=== PATIENT | male | born 1975 | race Caucasian/White ===

== ENCOUNTER 2020-05-09 20:42 | Emergency (ER) | payer OTHER, SELFPAY ==
[2020-05-09 20:49] VITALS: BP 156/79; PULSE 92; RESP 16; TEMP 37.2; O2SAT 98
--- NOTE | 2020-05-09 21:05 | ED.GENADUL_ITS ---
Discharge Plan Disposition Patient Disposition: HOME Condition: Stable Discharge Details Chief Complaint: Laceration Clinical Impression: Complex laceration of right ear Primary Care Provider: Suzie Carvajal ED Provider: Shen Montalvo Home Meds and New Rx's Prescriptions: New ciprofloxacin HCl 500 mg tablet 500 mg PO BID Qty: 6 RF: 0 Continued carbamazepine 400 mg tablet extended release 12 hr 400 mg PO BID Qty: 180 RF: 3 prochlorperazine maleate 5 mg tablet See Rx Instructions PO Q8H PRN Qty: 90 RF: 0 calcium carbonate-vitamin D3 1 EACH tablet 1 ea PO DAILY RF: 0 pantoprazole 40 MG tablet,delayed release (DR/EC) 40 mg PO DAILY Qty: 30 RF: 0 Discharge Instructions Instructions: Laceration (ED) Additional Instructions: Please follow-up with Dr. Beckman. Call for an appointment to be seen on . Please take acetaminophen (tylenol) - 650mg every 6 hours by mouth as needed for pain. Apply bacitracin antibiotic ointment twice a day. Please take antibiotic, ciprofloxacin as prescribed. Return to the ER for any worsening or new concerning symptoms. Referrals: Nilton Beckman MD [ [facility] STAFF PHYSICIAN] - Medical Decision Making 44-year-old male here with complex laceration to right ear extending fully through cartilage. Tetanus is up-to-date 2018. I consulted ear nose and throat, Dr. Beckman, who was available to evaluate and treat the patient here in the emergency department. Dr. Beckman provided anesthetic, cleansed wound and repaired primarily?please see his documentation regarding treatment. Usual and customary discharge instructions were provided with instruction to follow-up with Dr. Beckman. Dr. Beckman did request that we give a dose of ciprofloxacin 750 mg by mouth here in the emerge department and continue ciprofloxacin 500 mg twice daily for 3 days. He will be seen the patient in clinic on for follow-up. HPI General Mode of arrival: ambulatory . Date/Time Provider Initiated Documentation: 05/09/20 20:58 . Limitations to Documentation: no limitations . Information obtained by: patient . HPI Narrative: 44-year-old male here with right ear laceration. Patient notes he was at work just prior to arrival and caught his ear on a hook and sustained laceration. This occurred just prior to arrival. Wound has been bleeding. Bleeding improved with dressing. Laceration is severe. Related Data Home Medications Medication Instructions Recorded Confirmed pantoprazole 40 mg PO DAILY #30 tabcr 07/22/17 07/04/19 calcium carbonate-vitamin D3 1 ea PO DAILY 08/05/17 05/09/20 carbamazepine 400 mg 400 mg PO BID #180 tab 07/04/19 05/09/20 tablet,extended release,12 hr prochlorperazine maleate 5 mg See Rx Instructions PO Q8H PRN #90 07/04/19 07/04/19 tablet tab-cap ciprofloxacin HCl 500 mg PO BID #6 tab 05/09/20 Previous Rx's Medication Instructions Recorded pantoprazole 40 mg PO DAILY #30 tabcr 07/22/17 carbamazepine 400 mg 400 mg PO BID #180 tab 07/04/19 tablet,extended release,12 hr prochlorperazine maleate 5 mg See Rx Instructions PO Q8H PRN #90 07/04/19 tablet tab-cap ciprofloxacin HCl 500 mg PO BID #6 tab 05/09/20 Allergies Allergy/AdvReac Type Severity Reaction Status Date / Time venom-honey bee Allergy Severe Verified 05/09/20 20:53 General Stated Complaint: Laceration BALTA: 4 Review of Systems ENT Ears, Nose, Mouth, and Throat: Reports otalgia Integumentary/Breasts Skin/Breast: Reports as per [facility] Medical History Bland's esophagus (Acute) Focal epilepsy (Acute 06/25/15) Hiatal hernia (Chronic) Iron deficiency anemia due to chronic blood loss (Acute) Migraine without aura and without status migrainosus, not intractable (Acute 06/05/18) Surgical History Colonoscopy - MAC (08/30/17) EGD - MAC (08/30/17) S/P ORIF (open reduction internal fixation) fracture (Acute) left tib-fib; and left radius Family History Father Depression Mother Headache Social History Smoking/Tobacco Use Status: Former Tobacco Use Alcohol Intake: never Drug use: Never Household members: family current occupation: Road construction What is your relationship status?: Panel score (0-1 are the most socially isolated patients): 0 Do you feel safe at home: Yes Do you feel safe in your relationship?: Yes Exam Const General: cooperative and no acute distress HENMT Ears: other (Laceration, see skin) Mouth: moist mucous membranes Other: 5 cm, jagged laceration of superior right pinna extending through cartilage Skin Trauma: laceration (Right pinna) Neuro General: patient alert, patient awake and patient oriented x3 Course Vital Signs Vital signs: Vital Signs Temperature 37.2 C 05/09/20 20:49 Pulse 92 H 05/09/20 20:49 Respiratory Rate 16 05/09/20 20:49 Blood Pressure 156/79 H 05/09/20 20:49 Pulse Oximetry 98 05/09/20 20:49 Temperature 37.2 C 05/09/20 20:49 Pulse 92 H 05/09/20 20:49 Respiratory Rate 16 05/09/20 20:49 Respiratory Effort Non-Labored 05/09/20 20:51 Blood Pressure 156/79 H 05/09/20 20:49 Blood Pressure Position Sitting 05/09/20 20:49 Pulse Oximetry 98 05/09/20 20:49 Oxygen Delivery Method Room Air 05/09/20 20:49 Oxygen Flow Rate 0 05/09/20 20:49 Pain Level 3 05/09/20 20:51
[2020-05-09] MEDS: Hydrogen Peroxide 3% 480 ML BTL (21:53)
--- NOTE | 2020-05-09 22:04 | W.PROCNOTE ---
Date of service: 05/09/20 Procedure Note Date of procedure: 05/09/20 Procedure: Repair of right-sided comminuted laceration and exposed cartilage, ear Surgeon/Proceduralist/Physician: Nilton Beckman Procedure Indications: Right ear complex laceration Procedure Description: The patient was at work today when a hook struck him in the right ear, causing a complex laceration to his right ear. Total laceration length measures approximately 7 cm. The cartilage was avulsed as well. As a result I was asked to see the patient. He is up-to-date on his tetanus. He was prepped and draped in appropriate fashion. Verbal consent was obtained to repair the laceration. Risks including for scarring and infection were discussed at length. The patient was then focally anesthetized with 1% lidocaine with 1/100,000 epinephrine taking care not to compromise the blood supply to any given portion of the laceration. The cartilage was repositioned into its appropriate pocket, and then the complex laceration closed with a single layer of five-point 0 interrupted sutures. A small piece of avulsed skin on a small pedicle along the outer helix was excised, as it was deemed nonviable, and could not be positioned back into place. Once the laceration was completely closed, the cartilage was felt to be stable and the repair was felt to be stable. There was no evidence of hematoma formation. Sutures in the middle portion of the wound were left loose enough that if any bleeding continued the blood could escape. The patient was advised not to put any pressure on the wound, to watch for hematoma formation or any signs of infection. He will be given 750 mg of Cipro p.o. here and then given a prescription for Cipro at 500 mg twice daily to go home with. He will apply bacitracin twice daily for 3 days to the wound. He will follow-up with me on for suture removal. He will keep the wound dry for 48 hours. He will use ibuprofen or Tylenol for discomfort. He had no further questions. He is comfortable with the plan.
[2020-05-09 22:10] VITALS: BP 131/70; PULSE 80; RESP 16; TEMP 37.2; O2SAT 98
--- NOTE | 2020-05-12 09:06 | NUR.NOTE ---
Referral faxed to ENT Dr Beckman aware of patient.Nursing Note:
== END 2020-05-09 21:35 | disposition home or self-care (01) ==
PROVIDERS: Emergency Provider Student in an Organized Health Care Education/Training Program; PCP Nurse Practitioner Family
DX: S01.311A Laceration without foreign body of right ear, initial encounter (principal); W26.8XXA Contact with other sharp object(s), not elsewhere classified, initial encounter; Y99.0 Civilian activity done for income or pay
CPT/HCPCS: 12053; 99283

== ENCOUNTER 2020-05-20 20:53 | Outpatient (REF) | payer OTHER, SELFPAY ==
[2020-05-20 16:04] LABS: HCT 46.5 % (40.0-50.0); HGB 15.1 g/dL (13.5-17.5); Mean Corp. HGB Concentration 32.5 g/dL (32.0-36.0); Mean Corpuscular Hemoglobin 29.3 pg (27.0-33.0); Mean Corpuscular Volume 90.3 fL (80-95); Mean Platelet Volume 11.6 fL (8.0-11.0); Platelet Count 247 x1000/uL (130-400); RBC 5.15 m/cumm (4.50-6.00); RBC Distribution Width 13.7 % (11.8-14.1); White Blood Cell Count 4.68 k/cumm (4.4-10.8)
[2020-05-20 16:18] LABS: Iron 99 ug/dL (65-175); Total Iron Binding Capacity 391 ug/dL (250-450); Transferrin Sat 25 % (20-55)
[2020-05-20 16:30] LABS: Anion Gap 10.2 mmol/L (3-11); BUN 21 mg/dL (7-18); CO2 27.8 mmol/L (21.0-32.0); CREATININE 1.12 mg/dL (0.70-1.30); Calcium 9.5 mg/dL (8.5-10.1); Calculated LDL 100 mg/dL (<100); Chloride 105 mmol/L (98-107); Cholesterol 172 mg/dL (<200); Glucose 95 mg/dL (74-106); HDL Cholesterol 58 mg/dL (40-60); Potassium 4.3 mmol/L (3.5-5.1); Sodium 143 mmol/L (136-145); TSH (W/Ref FT4) 6.95 uIU/mL (0.36-3.74); Triglyceride 73 mg/dL (<150)
[2020-05-20 17:14] LABS: FREE T4 0.84 ng/dL (0.76-1.46)
== END 2020-05-20 21:13 ==
LOC: NCHCN 20:53
PROVIDERS: PCP Nurse Practitioner Family; Visit Provider Nurse Practitioner Family
DX: E03.9 Hypothyroidism, unspecified (principal); Z00.00 Encounter for general adult medical examination without abnormal findings; D50.9 Iron deficiency anemia, unspecified; Z13.220 Encounter for screening for lipoid disorders
CPT/HCPCS: 80048; 80061; 85027; 83540; 83550; 84439; 84443

== ENCOUNTER 2022-02-09 20:01 | Outpatient (REF) | payer BC, SELFPAY ==
[2022-02-09 19:46] LABS: MCHC 22.8 % (32.0-36.0); MCV 61.7 fL (80-95); MPV 10.5 fL (8.0-11.0); Platelet Count 330 10^3/uL (130-400); RBC 2.35 10^6/uL (4.36-5.78); RDW 22.5 % (11.8-14.1); RDW-SD 47.9 fL; WBC 3.21 10^3/uL (4.4-10.8)
[2022-02-09 20:04] LABS: HCT 14.5 % (40.0-50.0); HGB 3.3 g/dL (13.5-17.5)
[2022-02-09 20:08] LABS: Iron 10 ug/dL (65-175); Total Iron Binding Capacity 395 ug/dL (250-450); Transferrin Sat 3 % (20-55)
[2022-02-09 20:28] LABS: ALT 35 U/L (16-63); AST 31 U/L (15-37); Albumin 3.4 g/dL (3.4-5.0); Alkaline Phosphatase 74 U/L (46-116); Anion Gap 10.5 mmol/L (3-11); BUN 21 mg/dL (7-18); Bilirubin, Total 0.3 mg/dL (0.2-1.0); CO2 23.5 mmol/L (21.0-32.0); Chloride 104 mmol/L (98-107); Ferritin 2 ng/mL (26-388); Glucose 90 mg/dL (74-106); Potassium 4.2 mmol/L (3.5-5.1); Sodium 138 mmol/L (136-145); TROPONIN-I 8.6 ug/mL (4.0-12.0); TSH (W/Ref FT4) 4.58 uIU/mL (0.36-3.74); Total Protein 6.4 g/dL (6.4-8.2)
== END 2022-02-09 20:02 | disposition home or self-care (01) ==
LOC: NCHCN 20:01
PROVIDERS: PCP Nurse Practitioner Family; Visit Provider Nurse Practitioner Family
DX: D50.9 Iron deficiency anemia, unspecified (principal); R56.9 Unspecified convulsions; R17 Unspecified jaundice; Z51.81 Encounter for therapeutic drug level monitoring; Z79.899 Other long term (current) drug therapy; E03.9 Hypothyroidism, unspecified
CPT/HCPCS: 80053; 85027; 80156; 82728; 83540; 83550; 84439; 84443

== ENCOUNTER 2022-02-09 20:46 | Inpatient (IN) | payer BC, SELFPAY ==
[2022-02-09] VITALS (9 sets, daily range): BP systolic 109–160; BP diastolic 61–83; PULSE 77–98; RESP 18–21; TEMP 36.5–37.7; O2SAT 100
--- NOTE | 2022-02-09 21:02 | W.ED.GENAD ---
Discharge Plan Disposition Patient Disposition: [facility] INPATIENT Condition: Improving Discharge Details Clinical Impression: Iron deficiency anemia Admit Date/Time: 02/09/22 21:55 Admit Provider: Mauro Mccall Attending Provider: Mauro Mccall Primary Care Provider: Suzie Carvajal ED Provider: Gm Carrasco Discharge Data Discharge Date/Time-TO BE ENTERED AT DEPARTURE: 02/09/22 22:53 Medical Decision Making Patient presenting to the emergency department for chief complaint of abnormal lab value. Patient reported that he saw his primary care provider today that ordered labs due to him being pale and having mild malaise. He does also report some shortness of breath with activity but denies any dark or tarry stools, vomiting blood, chest pain, abnormal bruising or bleeding. Physical exam shows a pale appearing patient that is thin but otherwise normal cardiac exam, normal respiratory exam, no other remarkable findings. Labs were reviewed and show blood that was drawn at 5 PM this evening. Given the reported hemoglobin of 3.3 will not further draw labs except for type and screen and patient consented for transfusion. Reviewed previous hospital records that show he was admitted for this in the past with cause being found as iron deficient anemia. Given that patient denies any rectal bleeding or dark tarry stools will defer on Hemoccult testing at this time. Spoke with hospitalist whom agreed to have patient admitted for further monitoring during transfusions, laboratory work-up, and stabilization as needed. Patient is in agreement with this plan of care. Lab Data Lab results reviewed: Yes I reviewed the patient's lab results. Labs: ORDERED: CBC Test Result Flag Reference Verified WBC 3.21 L 4.4-10.8 10^3/uL 02/09/22-2003 RBC 2.35 L 4.36-5.78 10^6/uL 02/09/22-2003 HGB 3.3 *L 13.5-17.5 g/dL 02/09/22-2003 Critical value reported to and readback from LYLE BARBOSA at 200302/09/22 by [facility] HCT 14.5 *L 40.0-50.0 % 02/09/22-2003 Critical value reported to and readback from LYLE BARBOSA at 200302/09/22 by [facility] MCV 61.7 L 80-95 fL 02/09/22-2003 MCH 14.0 L 27.0-33.0 pg 02/09/22 MCHC 22.8 L 32.0-36.0 % 02/09/22 RDW 22.5 H 11.8-14.1 % 02/09/22 Platelet Count 330 130-400 10^3/uL 02/09/22 MPV 10.5 8.0-11.0 fL 02/09/22 ENTERED: 02/09/[address]: FAX #: ORDERED: Iron/IBCT Test Result Flag Reference Verified Iron 10 L 65-175 ug/dL 02/09/22 Total Iron Binding Capacity 395 250-450 ug/dL 02/09/22 Transferrin Saturation 3 L 20-55 % 02/09/22 ENTERED: 02/09/[address]: FAX #: ORDERED: CMP, Carbamazepine, Ferritin, TSHR, Free T4 Test Result Flag Reference Verified Calcium 8.0 L 8.5-10.1 mg/dL 02/09/22 Glucose 90 74-106 mg/dL 02/09/22 BUN 21 H 7-18 mg/dL 02/09/22 Creatinine 1.0 0.70-1.30 mg/dL 02/09/22 Estimated GFR >= 60.00 mL/min/1.73m2 02/09/22 Reference Range: >= 60.00 mL/min/1.73m2 If patient is , multiply results by 1.212 Total Protein 6.4 6.4-8.2 g/dL 02/09/22 Albumin 3.4 3.4-5.0 g/dL 02/09/22 Bilirubin, Total 0.3 0.2-1.0 mg/dL 02/09/22 Alk Phos 74 46-116 U/L 02/09/22 Sodium 138 136-145 mmol/L 02/09/22 Potassium 4.2 3.5-5.1 mmol/L 02/09/22 Chloride 104 98-107 mmol/L 02/09/22 CO2 23.5 21.0-32.0 mmol/L 02/09/22 Anion Gap 10.5 3-11 mmol/L 02/09/22 AST 31 15-37 U/L 02/09/22 ALT 35 16-63 U/L 02/09/22 Carbamazepine 8.6 4.0-12.0 ug/mL 02/09/22 Ferritin 2 L 26-388 ng/mL 02/09/22 TSH (W/Ref FT4) 4.58 H 0.36-3.74 uIU/mL 02/09/22 NOTE: Supra-physiologic doses of Biotin(B7)may cause false negative results. Free T4 PENDING HPI General Mode of arrival: ambulatory. Date/Time Provider Initiated Documentation: 02/09/22 20:46. Limitations to Documentation: no limitations. History of Present Illness 46 year old M presents to the emergency department with the chief complaint of Low hemoglobin, described as similar to prior episodes, Quality is described as other (Denies pain or discomfort), Patient started experiencing this unknown and it has been constant. improves with No relieving factors improve symptom(s), Other factors that worsen symptoms (Activity worsen shortness of breath) . Patient notes no other symptoms.. Patient did receive the following treatments prior to arrival, none Related Data Home Medications Medication Instructions Recorded Confirmed calcium carbonate 600 mg-vitamin 1 ea PO BID 08/05/17 02/10/22 D3 5 mcg (200 unit) tablet carbamazepine 400 mg 400 mg PO BID #180 tab 06/29/21 02/09/22 tablet,extended release,12 hr prochlorperazine maleate 5 mg See Rx Instructions PO Q8H PRN #90 06/29/21 02/09/22 tablet tab-cap levothyroxine 25 mcg tablet 25 mcg PO DAILY 02/10/22 02/10/22 bisacodyl 5 mg tablet,delayed 5 mg PO ONCE #4 tab 02/11/22 release (Dulcolax (bisacodyl)) pantoprazole 40 mg tablet,delayed 40 mg PO BID@0730,2000 #60 tab 02/11/22 release polyethylene glycol 3350 17 238 g PO ONCE #238 g 02/11/22 gram/dose oral powder sucralfate 1 gram tablet 1 g PO AC & HS #120 tab 02/11/22 Previous Rx's Medication Instructions Recorded carbamazepine 400 mg 400 mg PO BID #180 tab 06/29/21 tablet,extended release,12 hr prochlorperazine maleate 5 mg See Rx Instructions PO Q8H PRN #90 06/29/21 tablet tab-cap bisacodyl 5 mg tablet,delayed 5 mg PO ONCE #4 tab 02/11/22 release (Dulcolax (bisacodyl)) pantoprazole 40 mg tablet,delayed 40 mg PO BID@07,1999 #60 tab 02/11/22 release polyethylene glycol 3350 17 238 g PO ONCE #238 g 02/11/22 gram/dose oral powder sucralfate 1 gram tablet 1 g PO AC & HS #120 tab 02/11/22 Allergies Allergy/AdvReac Type Severity Reaction Status Date / Time venom-honey bee Allergy Severe Verified 06/29/21 09:54 General Stated Complaint: GenMedical BALTA: 3 Review of Systems Constitutional Constitutional: Denies chills, Denies fever(s), Denies frequent falls, Denies headache(s), Reports malaise and Denies poor appetite ENT Ears, Nose, Mouth, and Throat: Denies dizziness and Denies headache(s) Cardiovascular Cardiovascular: Denies chest pain, Denies syncope, Denies dyspnea and Reports dyspnea on exertion Respiratory Respiratory: Denies cough, Denies dyspnea and Reports dyspnea on exertion Gastrointestinal Gastrointestinal: Denies abdominal pain, Denies melena, Denies hematochezia, Denies coffee ground emesis, Denies vomiting and Denies hematemesis Genitourinary Genitourinary: Denies hematuria Integumentary/Breasts Skin/Breast: Denies unusual bruising Neurologic Neurologic: Denies dizziness, Denies syncope, Denies frequent falls and Denies headache(s) PFSH All Active Problems (Updated 02/11/22 @ 09:28 by Antelmo Dee) Pre-op exam (Acute) Iron deficiency anemia (Acute) Essential tremor (Acute) Bland's esophagus (Acute) Iron deficiency anemia due to chronic blood loss (Acute) Focal epilepsy (Acute 06/25/15) Migraine without aura and without status migrainosus, not intractable (Acute 06/05/18) History of frequent headaches (Chronic) Medical History Hiatal hernia Surgical History Colonoscopy - MAC (08/30/17) EGD - MAC (08/30/17) S/P ORIF (open reduction internal fixation) fracture left tib-fib; and left radius Family History Father Depression Mother Headache Social History Smoking/Tobacco Use Status: Former Tobacco Use Smoking risk assessment performed?: Yes Alcohol Intake: never Drug use: Never Household members: family current occupation: Road construction What is your relationship status?: Panel score (0-1 are the most socially isolated patients): 0 Do you feel safe at home: Yes Do you feel safe in your relationship?: Yes Exam Const General: cooperative, no acute distress, ill appearing chronically and not lethargic Orientation: alert, awake and oriented x3 HENMT Mouth: moist mucous membranes Resp Effort & Inspection: normal respiratory effort, able to speak in complete sentences and no respiratory distress Auscultation: clear to auscultation bilaterally Cardio Rate: regular rate Rhythm: regular rhythm Heart Sounds: S1 normal and S2 normal Skin General skin exam: no rashes or lesions noted, no petechiae, no purpura and pallor Neuro General: patient alert, patient awake, patient oriented x3, gait normal, moves all extremities and no focal motor deficits Course Vital Signs Vital signs: Vital Signs Temperature 36.5 C 02/09/22 20:49 Pulse 98 H 02/09/22 20:49 Respiratory Rate 20 02/09/22 20:49 Blood Pressure 160/73 H 02/09/22 20:49 Pulse Oximetry 100 02/09/22 20:49 Temperature 36.5 C 02/09/22 20:49 Temperature Source Skin 02/09/22 20:49 Pulse 98 H 02/09/22 20:49 Respiratory Rate 20 02/09/22 20:49 Blood Pressure 160/73 H 02/09/22 20:49 Blood Pressure Position Sitting 02/09/22 20:49 Pulse Oximetry 100 02/09/22 20:49 Oxygen Delivery Method Room Air 02/09/22 20:49 Oxygen Flow Rate 0 02/09/22 20:49 Pain Level 0 02/09/22 20:49
--- NOTE | 2022-02-09 22:08 | W.PM.HP.N ---
Date of service: 02/09/22 Time of Service: 21:09 Assessment and Plan Assessment and plan (1) Iron deficiency anemia: Status: Acute Assessment and plan: presented with a Hgb of 3.3. MCV 61.7. Iron level 10. % sat. 3. Stable vital signs. 2 units of pRBCs ordered in the ED. Another unit ordered upon admission. May need a fourth unit to increase hgb above 7. Similar presentation in 2017;Hgb then of 4.4. At that time, however, he had reported melanotic stools (unlike current presentation). He was also using NSAIDs at that time for migraine JAMES's. No longer using NSAIDS. EGD and colonoscopy at that time was unremarkable for any ulceration or site of bleeding. Suspect chronic, slow GI blood loss with resultant iron deficiency. Heme test stool x2 WBC count modestly low. Platelets normal. Retic level pending. Renal function normal, but will check an erythropoetin level. LDH only slightly above normal so doubt hemolysis, but consider haptoglobin. Surgery consult. (2) Bland's esophagus: Status: Acute Assessment and plan: Cont pantoprazole 40mg daily. No GERD complaints. Last EGD in our records was in 2017 (3) Migraine without aura and without status migrainosus, not intractable: Status: Acute Assessment and plan: Headaches are rare and uses prn compazine. Followed by Dr Saldivar. (4) Focal epilepsy: Status: Acute Assessment and plan: Cont carbamazepine XR 400mg BID. Cont Vit D and Ca supp. PFSH All Active Problems Iron deficiency anemia (Acute) Essential tremor (Acute) Bland's esophagus (Acute) Iron deficiency anemia due to chronic blood loss (Acute) Focal epilepsy (Acute 06/25/15) Migraine without aura and without status migrainosus, not intractable (Acute 06/05/18) History of frequent headaches (Chronic) Medical History Hiatal hernia Surgical History Colonoscopy - MAC (08/30/17) EGD - MAC (08/30/17) S/P ORIF (open reduction internal fixation) fracture left tib-fib; and left radius Family History Father Depression Mother Headache Social History Smoking/Tobacco Use Status: Former Tobacco Use Smoking risk assessment performed?: Yes Alcohol Intake: never Drug use: Never Household members: family current occupation: Road construction What is your relationship status?: Panel score (0-1 are the most socially isolated patients): 0 Do you feel safe at home: Yes Do you feel safe in your relationship?: Yes Meds Allergies and Home Medications Allergies Allergy/AdvReac Type Severity Reaction Status Date / Time venom-honey bee Allergy Severe Verified 06/29/21 09:54 Home Medications Medication Instructions Recorded Confirmed Type pantoprazole 40 mg tablet,delayed 40 mg PO DAILY #30 tabcr 07/22/17 02/09/22 Rx release calcium carbonate 600 mg-vitamin 1 ea PO DAILY 08/05/17 02/09/22 History D3 5 mcg (200 unit) tablet carbamazepine 400 mg 400 mg PO BID #180 tab 06/29/21 02/09/22 Rx tablet,extended release,12 hr prochlorperazine maleate 5 mg See Rx Instructions PO Q8H PRN #90 06/29/21 02/09/22 Rx tablet tab-cap Exam Narrative Exam Narrative: Pt is pleasant and conversant. Sitting up in bed. Const General: cooperative, no acute distress and not ill appearing Orientation: alert and oriented x3 Eyes General: appearance normal, both eyes and all related structures Conjunctivae: conjunctival abnormality bilaterally pallor Sclera: sclerae normal Resp Effort & Inspection: normal respiratory effort Auscultation: clear to auscultation bilaterally Cardio Rate: regular rate Rhythm: regular rhythm Heart Sounds: S1 normal and S2 normal GI Palpation: soft and nontender Auscultation: normal bowel sounds Neuro General: no focal motor deficits Cranial Nerves: facial strength normal Cognition: normal cognition Speech: speech normal Extrem General: no pedal edema and no calf tenderness Results Labs Result diagrams: 02/10/22 08:30 Labs: Laboratory Results - last 24 hr 02/09/22 21:00 Patient ABO/Rh A Positive Antibody Screen NEGATIVE Crossmatch See Detail Last Vital Signs Temp 36.5 C 02/09/22 20:49 Pulse 98 H 02/09/22 20:49 Resp 20 02/09/22 21:27 BP 160/73 H 02/09/22 20:49 Pulse Ox 100 02/09/22 20:49
[2022-02-09 22:20] LABS: Lab Add On Test DONE
[2022-02-09 22:27] LABS: Source Nasal/Nares
[2022-02-09 23:04] LABS: COVID-19 PCR Negative (Negative)
[2022-02-09 23:04] LABS: Lab Add On Test DONE
[2022-02-09 23:06] LABS: Reticulocyte 2.9 % (0.5-2.4)
[2022-02-10] VITALS (32 sets, daily range): BP systolic 122–150; BP diastolic 70–87; PULSE 58–86; RESP 14–20; TEMP 36.4–38.2; O2SAT 98–100
[2022-02-10] MEDS: Acetaminophen 325 MG TAB PO ×2 (01:47)
[2022-02-10] MEDS: diphenhydrAMINE 50 MG/ML VIAL 25 MG IVP (02:03)
[2022-02-10] MEDS: carBAMazepine 200 MG TAB 400 MG PO (07:59)
[2022-02-10] MEDS: Pantoprazole 40 MG TABCR PO ×2 (07:59→21:48)
[2022-02-10] MEDS: Calcium 600mg/Vit D 200U TAB 1 TAB PO (07:59)
[2022-02-10 08:55] LABS: HCT 21.4 % (40.0-50.0)
[2022-02-10 08:57] LABS: HGB 6.1 g/dL (13.5-17.5)
[2022-02-10] MEDS: diphenhydrAMINE 25 MG CAP PO (09:55)
[2022-02-10] MEDS: Acetaminophen 325 MG TAB 650 MG PO (09:56)
--- NOTE | 2022-02-10 10:06 | W.SURGCON ---
Date of service: 02/10/22 Time of Service: 10:07 Assessment and Plan Assessment and plan (1) Iron deficiency anemia due to chronic blood loss: Status: Acute Assessment and plan: Fahad is a pleasant 46-year-old gentleman who was admitted for anemia. His hemoglobin was 3.3 when it was checked at his primary care physician's office. He has received 3 units of blood and his hemoglobin has gone up to 6.1. He has no melena or hematochezia. He has no abdominal pain I suspect that this is chronic blood loss. The last time he had an upper and lower endoscopy was in 2016 when he was admitted with severe anemia, but at that time he did have melena most likely secondary to ibuprofen overuse. With the patient being stable my recommendation is to go ahead and give him a couple more units of blood. Recheck his hemoglobin and as long as he is stable he can be discharged. I will schedule him for a colonoscopy and upper endoscopy as an outpatient for next February 17. I have given the patient a pamphlet with all of his information as well as the prep instructions. The prep has been called into his pharmacy. I discussed this plan with the patient. I also discussed that if I do not find a bleeding source then he will need to be scheduled for an outpatient capsule endoscopy down to at [facility]. If this is negative as well then he will need a hematology consultation. The risks, benefits and complications of the upper and lower endoscopy were reviewed with him today and he wishes to proceed as an outpatient. Risks, benefits and complications have been reviewed. Complications include but are not limited to bleeding, pain, perforation, missed small lesion/polyp, sore throat, aspiration and adverse reaction to the medications. Questions were entertained and answered to their satisfaction and they wished to proceed. No guarantees were given or implied. Proceed with colonoscopy and upper endoscopy as an outpatient on February 17. We will set the patient up for Covid testing on Tuesday the . (2) Essential tremor: Status: Acute (3) Bland's esophagus: Status: Acute (4) Focal epilepsy: Status: Acute (5) History of frequent headaches: Status: Chronic History of Present Illness Narrative: Mr. Vasquez is a pleasant 46-year-old gentleman whom I know from back in 2016 when he was admitted with a hemoglobin of 4.4. Fahad was sent to the emergency department yesterday after being seen by his primary care physician and having labs drawn which showed a hemoglobin of 3.3. His last hemoglobin prior to this was in 2019 and it was 15.3. Fahad denies any melena, hematochezia, changes in bowel habits, GERD, dyspepsia, dysphagia or abdominal pain. Back in 2017 I did do an upper and lower endoscopy which was negative for bleeding source. He was diagnosed with Bland's that time. In 2017 he did have melena which was felt was due to high doses of NSAIDs. Fahad tells me that he has been good about not using NSAIDs and has been taking pantoprazole 40 mg daily. Fahad has received 3 units of blood and his hemoglobin has gone up appropriately from 3.3-6.1. He feels better this morning. He is no longer short of breath. He is still quite pale. Consults Consult date: 02/10/22 Requesting physician: Antelmo Dee Review of Systems Constitutional Constitutional: Reports fatigue, Denies fever(s), Denies headache(s) and Denies weight loss Eyes Eyes: Denies change in vision ENT Ears, Nose, Mouth, and Throat: Denies change in voice, Denies dysphagia, Denies headache(s) and Denies hoarseness Cardiovascular Cardiovascular: Denies chest pain, Denies irregular heart rhythm, Denies palpitations, Denies dyspnea and Reports dyspnea on exertion Respiratory Respiratory: Denies cough, Denies dyspnea and Reports dyspnea on exertion Gastrointestinal Gastrointestinal: Reports as per HPI, Reports system reviewed and no additional complaints, except as documented and Denies dysphagia Genitourinary Genitourinary: Reports system reviewed and no additional complaints, except as documented Musculoskeletal Musculoskeletal: Reports system reviewed and no additional complaints, except as documented Integumentary/Breasts Skin/Breast: Reports system reviewed and no additional complaints, except as documented Neurologic Neurologic: Reports system reviewed and no additional complaints, except as documented and Denies headache(s) Psychiatric Psychiatric: Reports system reviewed and no additional complaints, except as documented Endocrine Endocrine: Reports system reviewed and no additional complaints, except as documented, Reports fatigue and Denies palpitations Hematologic/Lymphatic Hematologic/Lymphatic: Reports system reviewed and no additional complaints, except as documented PFSH All Active Problems Iron deficiency anemia (Acute) Essential tremor (Acute) Bland's esophagus (Acute) Iron deficiency anemia due to chronic blood loss (Acute) Focal epilepsy (Acute 06/25/15) Migraine without aura and without status migrainosus, not intractable (Acute 06/05/18) History of frequent headaches (Chronic) Medical History Hiatal hernia Surgical History Colonoscopy - MAC (08/30/17) EGD - MAC (08/30/17) S/P ORIF (open reduction internal fixation) fracture left tib-fib; and left radius Family History Father Depression Mother Headache Social History Smoking/Tobacco Use Status: Former Tobacco Use Smoking risk assessment performed?: Yes Alcohol Intake: never Drug use: Never Household members: family current occupation: Road construction What is your relationship status?: Panel score (0-1 are the most socially isolated patients): 0 Do you feel safe at home: Yes Do you feel safe in your relationship?: Yes Exam Const General: cooperative, comfortable and no acute distress HENMT Head: normocephalic and atraumatic Eyes Pupils: PERRL Resp Effort & Inspection: normal respiratory effort Auscultation: clear to auscultation bilaterally Cardio Rate: regular rate Rhythm: regular rhythm Heart Sounds: no gallops, no murmurs and no rubs GI Inspection: normal to inspection Palpation: soft, no hepatosplenomegaly, no hernias, nontender and No ascites Auscultation: normal bowel sounds General: deferred Results Last Vital Signs Temp 98.2 F 02/10/22 07:35 Pulse 75 02/10/22 07:35 Resp 17 02/10/22 07:35 BP 150/85 H 02/10/22 07:35 Pulse Ox 100 02/10/22 07:35 Labs Result diagrams: 02/10/22 08:47 Labs: Laboratory Results - last 24 hr 02/09/22 02/09/22 02/09/22 16:55 16:55 16:55 Hgb Hct Reticulocyte % (Auto) 2.9 H COVID-19 Source SARS-CoV-2 (PCR) Add-On Test Request DONE DONE Patient ABO/Rh Antibody Screen Crossmatch 02/09/22 02/09/22 02/10/22 21:00 22:20 08:47 Hgb 6.1 L* D Hct 21.4 L D Reticulocyte % (Auto) COVID-19 Source Nasal/Nares SARS-CoV-2 (PCR) Negative Add-On Test Request Patient ABO/Rh A Positive Antibody Screen NEGATIVE Crossmatch See Detail
--- NOTE | 2022-02-10 13:42 | W.PM.PROGNOT ---
Date of Service Date of service: 02/10/22 Time of Service: 13:42 Assessment and Plan Assessment and plan (1) Bland's esophagus: Status: Acute Assessment and plan: Resume Protonix but will double up to 40 mg twice a day and add Carafate but will ask him to withhold his Carafate 48 hours prior to his EGD. Patient is being transfused 2 units packed red cells today. I will recheck his H&H and if it stable overnight he will be discharged home for follow-up with surgical services for an outpatient EGD and colonoscopy next week. (2) Iron deficiency anemia due to chronic blood loss: Status: Acute Assessment and plan: In addition to transfusion of red blood cells we will give him some IV iron and repeat his blood count in the morning. Repeat iron studies in 4 to 6 weeks. Plan for EGD and colonoscopy next week with Dr. Stone. Subjective Subjective Interval history since last seen: 46-year-old male former smoker with a history of Bland's esophagitis diagnosed by EGD performed 08/30/2017 so still a large hiatal hernia. Patient has been off of any PPI for some time now. He had seen his PCP for follow-up and had lab work done yesterday and was called and told to go straight to the hospital because he was severely anemic. Hemoglobin was found to be as low as 3.3 g with microcytic indices. Iron level was low. Patient was typed and screened and received 3 units of packed red cells which were transfused yesterday evening. Hemoglobin is up to 6.1 g this morning. Patient's only complaint was fatigue and dyspnea. He has had no noticeable melanotic stools and no hematochezia. He denies any abdominal pain or chest pain. He has no cough and no fever or chills. He does admit to taking Everardo back and body anti-inflammatory medications on a regular basis. He is supposed to be on pantoprazole but ran out of this but asked his PCP yesterday for a new prescription. No rectal exam was performed on admission. Patient's last bowel movement was 2 days ago. He has not noticed any melena nor has he noticed any hematochezia. Exam Narrative Exam Narrative: Tall thin middle-aged redhead who is fair complected but has very pale appearance pale conjunctiva. He is alert and oriented person place time circumstance. Not in any acute distress. Lungs are clear to auscultation Heart regular rate and rhythm no murmur rub or gallop Abdomen soft nondistended normal bowel sounds no palpable masses no bruits Rectal exam reveals normal sphincter tone normal prostate exam no stool in the rectal vault. Objective Last Vital Signs Temp 36.9 C 02/10/22 13:34 Pulse 70 02/10/22 13:34 Resp 16 02/10/22 13:34 BP 125/74 02/10/22 13:34 Pulse Ox 99 02/10/22 13:34 Laboratory Results - last 24 hr 02/09/22 02/09/22 02/09/22 16:55 16:55 16:55 Hgb Hct Reticulocyte % (Auto) 2.9 H COVID-19 Source SARS-CoV-2 (PCR) Add-On Test Request DONE DONE Patient ABO/Rh Antibody Screen Crossmatch 02/09/22 02/09/22 02/10/22 21:00 22:20 08:47 Hgb 6.1 L* D Hct 21.4 L D Reticulocyte % (Auto) COVID-19 Source Nasal/Nares SARS-CoV-2 (PCR) Negative Add-On Test Request Patient ABO/Rh A Positive Antibody Screen NEGATIVE Crossmatch See Detail
--- NOTE | 2022-02-10 16:15 | CHAPLAIN ---
Fahad was sitting up in bed when I visited. He said he is feeling better after being admitted for have low blood levels. He said he saw his PCP yesterday and later received a call from the lab telling him he needed to go to the ED. Fahad said he was chowder white at the time. He was pleasant and easily engaged in a conversation. I explained my role and offered support. I will continue to visit.
[2022-02-10 16:16] LABS: HCT 27.1 % (40.0-50.0)
--- NOTE | 2022-02-10 16:36 | INITIAL_ITS ---
- If Service Date Differs Date of service: 02/10/22 Time of Service: 16:36 Care Management Initial Assess REASON FOR HOSPITALIZATION:: Iron Deficiency Anemia PAST MEDICAL HISTORY/PAST SURGICAL HISTORY:: All Active Problems . Iron deficiency anemia (Acute). Essential tremor (Acute). Bland's esophagus (Acute). Iron deficiency anemia due to chronic blood loss (Acute). Focal epilepsy (Acute 06/25/15). Migraine without aura and without status migrainosus, not intractable (Acute 06/05/18). History of frequent headaches (Chronic). Medical History . Hiatal hernia. Surgical History . Colonoscopy - MAC (08/30/17). EGD - MAC (08/30/17). S/P ORIF (open reduction internal fixation) fracture. left tib-fib; and left radius PREVIOUS FUNCTIONAL STATUS/SOCIAL/FAMILY SUPPORTS:: Fahad lives alone in [facility]. He is seperated from his . He has 2 cats. He works second shift at [employer]. He drives and is independent at baseline. CURRENT FUNCTIONAL STATUS:: Fahad was lying in bed when CM met with him. He was alert, oriented and easy to engage in conversation. He's required infusions of RBC's today to treat his anemia and is starting to feel better. Fahad shares that he did not sleep well last night and is looking forward to a good nights r est now that he can breath better. ADVANCE DIRECTIVES:: None on file Has patient been provided with info about the portal/API?: Yes Did the patient sign up for the portal?: No CODE STATUS:: Full Code INSURANCE COVERAGE / FINANCIAL ISSUES:: BS. Medicaid. [facility] CURRENT HOME/COMMUNITY SERVICES/EQUIPMENT:: None PRIMARY CARE PHYSICIAN:: Suzie Carvajal POTENTIAL DISCHARGE NEEDS:: [facility]patient [facility] and plan for a EGD and colonoscopy. He will also need repeat iron studies in 4-6 weeks and follow up with his PCP. PATIENT/FAMILY EDUCATION NEEDS:: Review discharge instructions, limitations, medications and plan to follow up with community providers. ask me three. TRANSPORTATION:: via private vehicle located in the parking lot. PLAN:: Fahad is anemic and required infusion of RBC's today. M.D will recheck his labs in the morning and if his labs are stable he may be able to discharge home. He will transport via private vehicle located in the parking lot. He will need an outpt follow up with Dr. Andersen for a colonoscopy/EGD next week and have repeat iron studies in 4-6 weeks. He will also follow up with his PCP. CM will continue to support discharge planning needs.
--- NOTE | 2022-02-10 17:00 | PHA.REVIEW ---
Pharmacy Admission Review - Admission Clinical Review (Last Reviewed 02/10/22 @ 10:12 by Laure Stone MD) Iron deficiency anemia (Acute) Essential tremor (Acute) Bland's esophagus (Acute) Iron deficiency anemia due to chronic blood loss (Acute) Focal epilepsy (Acute 06/25/15) Migraine without aura and without status migrainosus, not intractable (Acute 06/05/18) venom-honey bee Allergy (Severe, Verified 06/29/21 09:54) Resuscitation Status Full Code Height 6 ft 7 in Weight 171 kg - Renal Dosing Medications needing adjustments: Reviewed - Anticoagulation Anticoagulation: Hgb 8.0 g/dL (13.5-17.5) L 02/10/22 16:13 Hct 27.1 % (40.0-50.0) L D 02/10/22 16:13 DVT Prophylaxis: N/A Therapeutic Anticoagulation: N/A - Opiate Usage Evaluate Pain Scale/Pains Meds: N/A - Relevant Labs Electrolytes, C-Reactive P, ESR: N/A - DM Control Insulin Dosing: N/A - Heart Failure/SC EF%, SANJUANITA's, B-Blockers, Diuretics: N/A - BP Control BP Control: Blood Pressure 124/72 Blood Pressure 132/79 Blood Pressure 132/72 Blood Pressure 125/74 Blood Pressure 133/75 Blood Pressure 133/75 Blood Pressure 136/85 Blood Pressure 136/85 Blood Pressure 141/81 Blood Pressure 138/79 Blood Pressure 138/80 Blood Pressure 142/76 Blood Pressure 150/85 Blood Pressure 143/87 Blood Pressure 127/79 If elevated: Reviewed - IV to PO Switch IV Medications: Reviewed - Home Meds Home Med List reviewed: Reviewed Relevent Home Meds Not ordered & why?: not ordered: levothyroxine - Current meds Current Medication Order Review: Reviewed
[2022-02-10] MEDS: Sucralfate 1 GM TAB PO ×2 (17:07→21:47)
[2022-02-11] VITALS: PULSE 60
[2022-02-11 03:42] VITALS: BP 148/81; PULSE 79; RESP 18; TEMP 37.3; O2SAT 97
[2022-02-11 07:05] VITALS: PULSE 63
[2022-02-11 07:08] VITALS: BP 141/87; PULSE 74; RESP 17; TEMP 36.5; O2SAT 98
--- NOTE | 2022-02-11 07:53 | W.PM.PROGNOT ---
Documented by User: ALEKSANDAR Eden 02/11/22 07:56 Date of Service Date of service: 02/11/22 Time of Service: 07:53 Assessment and Plan Assessment and plan (1) Iron deficiency anemia: Status: Acute Assessment and plan: A// Patient is feeling well this morning. AM Labs pending Patient denies having any questions about bowel prep. Plan for EGD and COlonoscopy as an out patient next week on 02/[address] Stone (2) Iron deficiency anemia due to chronic blood loss: Status: Acute Subjective Subjective Interval history since last seen: Arrived with patient resting comfortably in bed. He denies any pain or discomfort. He expressed that he is eager to be d/c home. Exam Const General: cooperative, healthy appearing and comfortable Orientation: alert and oriented x3 Resp Effort & Inspection: normal respiratory effort, no audible wheezes and no cough Objective Last Vital Signs Temp 37.3 C 02/11/22 03:42 Pulse 63 02/11/22 07:05 Resp 18 02/11/22 03:42 BP 148/81 H 02/11/22 03:42 Pulse Ox 97 02/11/22 03:42 Laboratory Results - last 24 hr 02/09/22 02/10/22 02/10/22 21:00 08:47 16:13 Hgb 6.1 L* D 8.0 L Hct 21.4 L D 27.1 L D Patient ABO/Rh A Positive Antibody Screen NEGATIVE Crossmatch See Detail
[2022-02-11 08:29] LABS: Abs Immature Grans 0.07 10^3/uL (0.0-0.06); Absolute Basophil Count 0.05 10^3/uL (0.0-0.2); Absolute Eosinophil Count 0.08 10^3/uL (0.0-0.7); Absolute Lymphocyte Count 1.01 10^3/uL (1.2-3.4); Absolute Monocyte Count 0.59 10^3/uL (0.1-0.8); Absolute Neutrophil Count 5.05 10^3/uL (1.2-6.7); Basophils % 0.7; Eosinophils % 1.2; HCT 30.8 % (40.0-50.0); HGB 9.1 g/dL (13.5-17.5); Lymphocytes % 14.7; MCH 21.7 pg (27.0-33.0); MCHC 29.5 % (32.0-36.0); MCV 73.5 fL (80-95); Monocytes % 8.6; Neutrophils % 73.8; Nucleated RBC 1 %; RBC 4.19 10^6/uL (4.36-5.78); RDW 28.4 % (11.8-14.1); RDW-SD 73.2 fL; WBC 6.85 10^3/uL (4.4-10.8)
[2022-02-11] MEDS: Calcium 600mg/Vit D 200U TAB 1 TAB PO (08:45)
[2022-02-11] MEDS: Sucralfate 1 GM TAB PO ×2 (08:45→11:18)
[2022-02-11] MEDS: Pantoprazole 40 MG TABCR PO (08:46)
[2022-02-11 08:53] LABS: Anisocytosis 3+; Diff Comment Diff Reviewed; Hypochromasia 2+; Microcytosis 1+; Platelet Count 247 10^3/uL (130-400)
[2022-02-11 08:54] LABS: Poikilocytes 2+; Polychromasia Present
[2022-02-11 09:09] LABS: Haptoglobin 119 mg/dL (32-197)
--- NOTE | 2022-02-11 09:34 | DSE_ITS ---
Date of service: 02/11/22 Time of Service: 09:34 DS: Diagnosis Discharge Diagnosis (1) Iron deficiency anemia due to chronic blood loss: Status: Acute (2) Bland's esophagus: Status: Acute Asessment and Plan: Protonix increased to 40 mg bid and carafate 1 gm ac/hs has been added Discharge Plan Disposition Patient Disposition: HOME Condition: Improving Discharge Details Reason For Visit: Iron deficiency anemia Admit Date/Time: 02/09/22 21:55 Admit Provider: Mauro Mccall Attending Provider: Mauro Mccall Primary Care Provider: [facility] Course Hospital Course: 46 yr old male w/ PMH of Bland's esophagitis (dx per EGD 08/30/2017) who had run out of his protonix. He had follow up labs w/ his PCP d/t symptoms of dyspnea that has been present x 2 wks. No associated melena, hematochezia, abdominal pain or hematemesis. He was called by his PCP and told to present to the ER urgently d/t Hb 3 gm. Patient was typed and screened and started on transfusions. he was admitted for evaluation and treatment of his severe anemia. He received 3 units of PRBC on the evening/night of his admission and received an additional 2 units the following day (02/10). He was put on protonix 40 mg bid and carafate 1 gm AC/HS was added. Rectal exam did not reveal any stool in his rectal vault however he subsequently had a BM that was negative for occult blood. Dr. Laure Stone saw the patient in surgical consultation and has arranged for outpatient upper and lower endoscopy for next week (Tue. 02/17 I believe). Patient's subsequent Hb came up to 9.1 gm after all of his transfusions. He will get follow up CBC next week along w/ SARS-COV2 screening PCR prior to his EGD and colonoscopy. Dr. Stone's office will call the patient w/ instructions on his bowel prep and when to report for his endoscopy. Patient was advised to avoid all NSAID and aspirin products but may use Tylenol/acetaminophen as needed for pain (he had been using Everardo Back and Body aspirin). If his upper and lower endoscopy is not revealing of his source of blood loss then a capsule endoscopy would be adviseable. Home Meds and New Rx's Prescriptions: New sucralfate 1 gram Tablet 1 g PO AC & HS Qty: 120 1RF pantoprazole 40 mg Tablet,Delayed Release (Dr/Ec) 40 mg PO BID@729,1999 Qty: 60 1RF Discontinued pantoprazole 40 MG tablet,delayed release (DR/EC) 40 mg PO DAILY Qty: 30 0RF Rx Instructions: pt has not taken in a 'long time' No Action carbamazepine 400 mg tablet extended release 12 hr 400 mg PO BID Qty: 180 3RF prochlorperazine maleate 5 mg tablet See Rx Instructions PO Q8H PRN Qty: 90 0RF Rx Instructions: 5-10mg PO every 8 hours, as needed; prn headache or nausea calcium carbonate-vitamin D3 1 EACH tablet 1 ea PO BID 0RF levothyroxine 25 mcg tablet 25 mcg PO DAILY 0RF Label Comments: Take 1 tablet by mouth once a day Discharge Instructions Instructions: Iron Rich Diet (DC), Iron Deficiency Anemia (GEN) Additional Instructions: avoid use of any aspirin products, anti-inflammatories including Aleve, Naprosyn, ibuprofen, Advil. You may use Tylenol/acetaminophen for pain or fevers. You should hear from Dr. Laure Stone's office regarding doing your colonoscopy prep next week and they will give you a time to show up for your EGD and colonoscopy for next week. Please get the repeat CBC and your rapid COVID screen done 2 days before your EGD and colonoscopy Referrals: Laure Stone MD [ [facility] STAFF PHYSICIAN] - 02/12/22 11:00 am (Your procedure is 02/17/22. They will contact you with a time to be at the hospital the day prior to the procedure. Your appointment with Dr. Stone is to go over the procedure preparation information.) Tate Salas [ [facility] STAFF PHYSICIAN] - 02/22/22 3:50 pm Activity:: Activity as Tolerated Equipment/Supplies:: No Equipment Needed Diet:: Normal Diet Discharge Orders Other Ambulatory Orders: Complete Blood Count w/Diff (Routine) Timeframe: 20220215 Facility: [facility] - Location: Laboratory Outpatient Ordered By: Antelmo RIDERID-19 PCR Rapid ([facility]) (Stat) Timeframe: 20220215 Facility: [facility] - Location: Laboratory Outpatient Ordered By: Antelmo Dee DS: Summary Time Spent with Patient providing and/or coordinating discharge services: Greater than 30 minutes Status at Discharge Functional status at discharge: independent ambulation Overall status at discharge: patient is progressing back to baseline Mental Status: mental status grossly normal Speech and Movement: speech and movement normal Mood: congruent mood Affect: normal affect Exam Narrative Exam Narrative: Tall thin middle-aged redhead who is fair complected but has very pale appearance pale conjunctiva. He is alert and oriented person place time circumstance. Not in any acute distress. Abdomen soft nondistended normal bowel sounds no palpable masses no bruits Psych Mental Status: mental status grossly normal Speech and Movement: speech and movement normal Mood: congruent mood Affect: normal affect DS: Data Vitals/I&O Vitals and I&O: Vital Signs Temperature 36.5 C 02/11/22 07:08 Temperature Source Tympanic 02/11/22 07:08 Pulse 74 02/11/22 07:08 Pulse Rhythm Regular 02/11/22 09:31 Respiratory Rate 17 02/11/22 07:08 Respiratory Effort 02/11/22 09:31 Respiratory Depth Normal 02/11/22 09:31 Respiratory Pattern Normal 02/11/22 09:31 Blood Pressure 141/87 H 02/11/22 07:08 Blood Pressure Position Sitting 02/09/22 20:49 Pulse Oximetry 98 02/11/22 07:08 Oxygen Delivery Method Room Air 02/11/22 07:08 Oxygen Flow Rate 0 02/11/22 07:08 Pain Level 0 02/11/22 03:42 Comment 02/10/22 03:24 Intake & Output 02/10/22 02/10/22 02/11/22 11:59 23:59 11:59 Intake Total 1099 95 / 2050 Output Total 600 / 600 500 / 500 Balance 500 / 1451 951 / 1451 -500 / -500 Intake: Oral 240 / 240 Blood Product 1100 / 1810 71 / 1811 Rbc Leuko Reduced Unit 347 / 347 [id number] Rbc Leuko Reduced Unit 500 / 500 [id number] Rbc Leuko Reduced Unit 300 / 300 [id number] Rbc Leuko Reduced Unit 300 / 300 [id number] Rbc Leuko Reduced Unit 364 / 364 [id number] Output: Urine 600 / 600 500 / 500 Other: Urine Color Light Marley Yellow Urine Appearance Clear Clear Urine Odor Normal Comment unknown amount Stool Occult Blood Negative Stool Size Large Stool Characteristics Brown Voiding Methods Toilet Data Completed and Pending Labs on day of discharge: Labs from last 24 hours 02/11/22 02/10/22 02/09/22 08:14 16:13 21:00 WBC 6.85 RBC 4.19 L Hgb 9.1 L 8.0 L Hct 30.8 L 27.1 L D MCV 73.5 L MCH 21.7 L MCHC 29.5 L RDW 28.4 H Plt Count 247 MPV Immature Gran % 1.0 Neutrophils % 73.8 Lymphocytes % 14.7 Monocytes % 8.6 Eosinophils % 1.2 Basophils % 0.7 Nucleated RBC % 1 Absolute Neutrophils 5.05 Absolute Lymphocytes 1.01 L Absolute Monocytes 0.59 Absolute Eosinophils 0.08 Absolute Basophils 0.05 RBC Morphology See Below Polychromasia Present Hypochromasia 2+ Poikilocytosis 2+ Anisocytosis 3+ Microcytosis 1+ Patient ABO/Rh A Positive Antibody Screen NEGATIVE Crossmatch See Detail PFSH All Active Problems (Updated 02/11/22 @ 09:28 by Antelmo Dee) Pre-op exam (Acute) Iron deficiency anemia (Acute) Essential tremor (Acute) Bland's esophagus (Acute) Iron deficiency anemia due to chronic blood loss (Acute) Focal epilepsy (Acute 06/25/15) Migraine without aura and without status migrainosus, not intractable (Acute 06/05/18) History of frequent headaches (Chronic) Medical History Hiatal hernia Surgical History Colonoscopy - MAC (08/30/17) EGD - MAC (08/30/17) S/P ORIF (open reduction internal fixation) fracture left tib-fib; and left radius Family History Father Depression Mother Headache Social History Smoking/Tobacco Use Status: Former Tobacco Use Smoking risk assessment performed?: Yes Alcohol Intake: never Drug use: Never Household members: family current occupation: Road construction What is your relationship status?: Panel score (0-1 are the most socially isolated patients): 0 Do you feel safe at home: Yes Do you feel safe in your relationship?: Yes
[2022-02-11 11:00] VITALS: BP 132/73; PULSE 55; RESP 16; TEMP 36; O2SAT 99
[2022-02-11 13:10] VITALS: PULSE 69
--- NOTE | 2022-02-11 14:32 | PDOC.CMDIS ---
- If Service Date Differs Date of service: 02/11/22 Time of Service: 14:32 LACE Index Scoring Tool - Questions: Length of Stay (in days): 2 Acuity (Admit via E.D.?): Yes E.D. Visits: 1 - Answers: Total Score: 6 Risk of Readmission: Low Risk Care Management Discharge Reason for Hospitalization: Iron Deficiency Anemia Discharge Plan: Fahad returned home today with no new services. He drove himself home, as his car was parked in the parking lot. He will follow up with his PCP and discharge plan of care. He was happy to be going home. Patient/Family Education Needs: Review discharge instructions and limitations, discussion of self care needs including ask me three.
[2022-02-11 20:12] LABS: Erythropoietin 4534 mIU/mL (2.6 - 18.5)
== END 2022-02-11 13:25 | disposition home or self-care (01) | DRG 812 ==
LOC: ER 22:03 → MS 22:49
PROVIDERS: Internal Medicine; Admitting Provider Family Medicine; Emergency Provider Nurse Practitioner Family; PCP Nurse Practitioner Family; Visit Provider Family Medicine
DX: D50.0 Iron deficiency anemia secondary to blood loss (chronic) (principal); G40.109 Localization-related (focal) (partial) symptomatic epilepsy and epileptic syndromes with simple partial seizures, not intractable, without status epilepticus; K22.70 Barrett's esophagus without dysplasia; G25.0 Essential tremor; G43.009 Migraine without aura, not intractable, without status migrainosus; Z79.899 Other long term (current) drug therapy; Z87.891 Personal history of nicotine dependence
CPT/HCPCS: 36415; 36430; 82668; 86850; 86900; 86901; 86920; 87635; 99284; 99285; 83010; 85014; 85018; 85025; 85045; 99223; 99232; 99239; J1200; P9016

== ENCOUNTER 2022-02-15 02:46 | Outpatient (CLI) | payer BC, SELFPAY ==
[2022-02-15 11:23] LABS: Source Nasal/Nares
[2022-02-15 16:09] LABS: COVID-19 PCR Negative (Negative)
== END 2022-02-15 02:47 | disposition home or self-care (01) ==
LOC: LBO 02:46
PROVIDERS: PCP Nurse Practitioner Family; Visit Provider Surgery
DX: Z20.822 Contact with and (suspected) exposure to COVID-19 (principal); Z01.818 Encounter for other preprocedural examination
CPT/HCPCS: 87635

== ENCOUNTER 2022-02-17 07:36 | Day surgery (SDC) | payer BC, SELFPAY ==
--- NOTE | 2022-02-16 09:43 | NUR.NOTE ---
x2 attempts with voicemail left, and arrival time of 0745. office notified.Nursing Note:
--- NOTE | 2022-02-17 06:31 | W.COLOREPORT ---
Colonoscopy Report Date of procedure: 02/17/22 Pre-op diagnosis general: Anemia Procedure: 1. EGD with biopsies 2. Colonoscopy with biopsy Surgeon: Laure Stone Anesthesia Type: General:No Airway Estimated blood loss (mL): 3 Pathology: other (Bx of stomach, gastric ulcer and cecal polyp (?)) Complications: None Disposition: same day Indications: Fahad is a pleasant 46-year-old gentleman who was admitted for anemia.? His hemoglobin was 3.3 when it was checked at his primary care physician's office.? He has received 3 units of blood and his hemoglobin has gone up to 6.1.? He has no melena or hematochezia.? He has no abdominal pain I suspect that this is chronic blood loss.? The last time he had an upper and lower endoscopy was in 2016 when he was admitted with severe anemia, but at that time he did have melena most likely secondary to ibuprofen overuse. With the patient being stable my recommendation is to go ahead and give him a couple more units of blood.? Recheck his hemoglobin and as long as he is stable he can be discharged.? I will schedule him for a colonoscopy and upper endoscopy as an outpatient for next February 17.? I have given the patient a pamphlet with all of his information as well as the prep instructions.? The prep has been called into his pharmacy.? I discussed this plan with the patient.? I also discussed that if I do not find a bleeding source then he will need to be scheduled for an outpatient capsule endoscopy down to at [facility].? If this is negative as well then he will need a hematology consultation. The risks, benefits and complications of the upper and lower endoscopy were reviewed with him today and he wishes to proceed as an outpatient. Risks, benefits and complications have been reviewed. Complications include but are not limited to bleeding, pain, perforation, missed small lesion/polyp, sore throat, aspiration and adverse reaction to the medications. Questions were entertained and answered to their satisfaction and they wished to proceed. No guarantees were given or implied. Proceed with colonoscopy and upper endoscopy as an outpatient on February 17.? We will set the patient up for Covid testing on Tuesday the . Prep: Miralax/Dulcolax Procedure Start Time: 09:11 Procedure End Time: : Retraction Time: 12 minutes Findings: moderate inflammation of the stomach and a healing ulcer Large 10 cm Hiatal hernia ? cecal polyp Procedure Description: After informed consent was obtained the patient was take to the procedure room and placed in a supine position. Monitors were applied and a time out was done. The patients name, date of , procedure type, allergies to medications and metal in their body was reviewed. A bite block was placed and the patient was sedated. Once sedated and comfortable the gastroscope was advanced through the oropharynx which was grossly normal into the esophagus. The proximal, mid- and distal esophagus were normal. The scope was advanced into the stomach and through the pylorus into the 3rd portion of the duodenum. The duodenum was noted to be normal. The scope was retracted back into the stomach. There was mild to moderate inflammation noted in the antrum and body. Biopsies were done to rule out H. pylori. There was one ulcer in the body of the stomach close to the edge of the Hiatal Hernia. The scope was retro-flexed. The cardia and fundus were noted to be normal. There was a hiatal hernia noted. The Hiatal Hernia measured approximately 10 cm. The scope was retracted back into the esophagus. The Z line was regular. The GE junction was at 30 cm. While the patient was still sedated they were placed in a left decubitous position. A rectal exam was done. External exam was normal. Internal exam revealed a normal sphincter tone and no palpable masses. The prostate felt smooth. The scope was then introduced and retro-flexed. No internal hemorrhoids, masses or polyps were identified on retroflexion. The scope was then advanced to the cecum without difficulty. The ileocecal valve and appendiceal orifice were identified. The prep was good. The scope was then slowly retracted over 12 minutes back into the rectum. A biopsy was done in the cecum that looked like potentially a small polyp.. There was no diverticulosis noted. The scope was removed and the patient was woken up and taken back to Same day surgery in stable condition. The patient tolerated the procedure well and there were no immediate complications.
--- NOTE | 2022-02-17 06:32 | W.PM.DSUDISC ---
Discharge Plan Disposition Patient Disposition: HOME Condition: Good Discharge Details Reason For Visit: Anemia Attending Provider: Laure Stone Primary Care Provider: Suzie Carvajal Home Meds and New Rx's Prescriptions: Continued carbamazepine 400 mg tablet extended release 12 hr 400 mg PO BID Qty: 180 3RF prochlorperazine maleate 5 mg tablet See Rx Instructions PO Q8H PRN Qty: 90 0RF Rx Instructions: 5-10mg PO every 8 hours, as needed; prn headache or nausea calcium carbonate-vitamin D3 1 EACH tablet 1 ea PO BID 0RF levothyroxine 25 mcg tablet 25 mcg PO DAILY 0RF Label Comments: Take 1 tablet by mouth once a day pantoprazole 40 mg Tablet,Delayed Release (Dr/Ec) 40 mg PO BID@729,1999 Qty: 60 1RF Discontinued bisacodyl [Dulcolax (bisacodyl)] 5 mg tablet,delayed release (DR/EC) 5 mg PO ONCE Qty: 4 0RF Rx Instructions: Colonoscopy Bowel Prep- Per Instructions polyethylene glycol 3350 17 gram/dose powder 238 g PO ONCE Qty: 238 0RF Rx Instructions: Colonoscopy Bowel Prep- Per Instructions sucralfate 1 gram Tablet 1 g PO AC & HS Qty: 120 1RF Discharge Instructions Instructions: Diet for Stomach Ulcers and Gastritis (ED), Gastritis (DC), Peptic Ulcer (DC), Hiatal Hernia (DC) Additional Instructions: Findings: Stomach ulcer Hiatal Hernia Follow up: will depend on biopsy results Please call if you develop: fevers >101.5 Nausea or Vomiting Abdominal pain that is not transient Rectal bleeding that is more then a tbsp A hard abdomen and inability to pass gas DAY SURGERY UNIT POST ENDOSCOPY INSTRUCTIONS Instructions for everyone who is given Anesthesia: For your safety, please do the following for the next 24 Hours: a. Do not drive or operate dangerous equipment b. Do not drink alcohol beverages or use any recreational drugs for the first 24 hours or while taking pain medications. The medications in your body may have a reaction that can be dangerous. c. Do not make any important decisions or sign any important papers 1. Generally there are no restrictions on your activity after a day or so has gone by, but you may feel a bit fatigued for a few days. 2. After you arrive home you may have a light meal and return to a normal diet as you can tolerate it without feeling sick to your stomach. 3. After surgery, you may feel pain or discomfort. This should be only transient, but if it persists please contact your doctor. 4. If there are any questions regarding the findings of your procedure, please feel free to contact your doctor. 6. If you are unable to contact your doctor with a problem, contact the hospital at [phone]. 7. Continue all your regular medications unless directed otherwise. I understand the above instructions and have no questions. Signature of Patient or Responsible Adult Escort Date/Time Name of Responsible Adult Escort Signature of Nurse Date/Time Activity:: Activity as Tolerated Diet:: low acid for 2 weeks Discharge Orders Discharge Orders: Discharge Order (Routine); Ordered 02/17/22 Ordered By: Laure Stone
[2022-02-17 07:53] VITALS: BP 132/90; PULSE 75; RESP 16; TEMP 36.7; O2SAT 100
[2022-02-17] MEDS: Lactated Ringers 1,000 ML 80 ML IV (08:07)
--- NOTE | 2022-02-17 08:11 | W.ANESPRE ---
General Info Date of Service Date Performed: 02/17/22 Height: 6 ft 7 in Weight: 74.8 kg Body Mass Index (BMI): 18.6 Surgical Procedure: Operation Date: 02/17/22 09:35 Proposed Procedure Side Surgeon p Colonoscopy/Gastroscopy Laure Stone MD Meds Allergies and Home Medications Allergies Allergy/AdvReac Type Severity Reaction Status Date / Time venom-honey bee Allergy Severe Verified 02/17/22 07:55 Home Medication Medication Instructions Recorded calcium carbonate 600 mg-vitamin 1 ea PO BID 08/05/17 D3 5 mcg (200 unit) tablet carbamazepine 400 mg 400 mg PO BID #180 tab 06/29/21 tablet,extended release,12 hr prochlorperazine maleate 5 mg See Rx Instructions PO Q8H PRN #90 06/29/21 tablet tab-cap levothyroxine 25 mcg tablet 25 mcg PO DAILY 02/10/22 bisacodyl 5 mg tablet,delayed 5 mg PO ONCE #4 tab 02/11/22 release (Dulcolax (bisacodyl)) pantoprazole 40 mg tablet,delayed 40 mg PO BID@0730,2000 #60 tab 02/11/22 release polyethylene glycol 3350 17 238 g PO ONCE #238 g 02/11/22 gram/dose oral powder sucralfate 1 gram tablet 1 g PO AC & HS #120 tab 02/11/22 Current Visit Medications: Current Medications Generic Name Dose Route Start Last Admin Trade Name Freq PRN Reason Stop Dose Admin Hyoscyamine Sulfate 0.125 mg 02/17/22 06:33 Hyoscyamine 0.125 Mg Sl/Oral/Chew SL DIRECTED PRN Ringer's Solution 1,000 mls @ 80 mls/hr 02/17/22 06:00 02/17/22 08:07 IV 03/18/22 23:59 80 mls/hr INFUSION REJI Administration IV Miscellaneous Supplies 1 each 02/17/22 06:00 Iv Access IV 03/18/22 23:59 DIRECTED REJI Ondansetron HCl 4 mg 02/17/22 06:33 Ondansetron 4 Mg/2 Ml Vial IVP Q4H PRN PRN Nausea / Vomiting Sodium Chloride 0 ml 02/17/22 06:00 Normal Saline Flush 10 Ml Syr IV 03/18/22 23:59 PRN PRN Sodium Chloride 0 ml 02/17/22 06:00 Normal Saline 10 Ml Vial IJ 03/18/22 23:59 DIRECTED PRN Sterile Water 0 ml 02/17/22 06:00 Water,Injection,Sterile 10 Ml Vial IJ 03/18/22 23:59 DIRECTED PRN PFSH Active Problems Active Problems: Problem Status Onset Code Pre-op exam Z01.818 Iron deficiency anemia D50.9 Essential tremor G25.0 Bland's esophagus K22.70 Iron deficiency anemia due to chronic blood loss D50.0 Focal epilepsy 06/25/15 G40.109 Migraine without aura and without status migrainosus, not intractable 06/05/18 G43.009 History of frequent headaches [id number] Medical History Medical History Hiatal hernia Surgical History Surgical History Colonoscopy - MAC (08/30/17) EGD - MAC (08/30/17) S/P ORIF (open reduction internal fixation) fracture left tib-fib; and left radius Tobacco Smoking/Tobacco Use Status: Former Tobacco Use Alcohol Alcohol Intake: never Substance Use Substance use: Never Substance use type: does not use Vital Signs and Lab Results Vital Signs Most Recent Vital Signs in EMR: Most Recent Vital Signs Temp Pulse Resp BP Pulse Ox 36.7 C 75 16 132/90 100 02/17/22 07:53 02/17/22 07:53 02/17/22 07:53 02/17/22 07:53 02/17/22 07:53 Lab Results Blood Type / Crossmatch: Patient ABO/Rh A Positive 02/09/22 Antibody Screen NEGATIVE 02/09/22 Crossmatch See Detail 02/09/22 Complete Blood Count: White Blood Count 6.85 10^3/uL (4.4-10.8) 02/11/22 08:14 02/11/22 Red Blood Count 4.19 10^6/uL (4.36-5.78) L 02/11/22 08:14 02/11/22 Hemoglobin 9.1 g/dL (13.5-17.5) L 02/11/22 08:14 02/11/22 Hematocrit 30.8 % (40.0-50.0) L 02/11/22 08:14 02/11/22 Platelet Count 247 10^3/uL (130-400) 02/11/22 08:14 02/11/22 Complete Metabolic Panel: Sodium Level 138 mmol/L (136-145) 02/09/22 16:55 02/09/22 Potassium Level 4.2 mmol/L (3.5-5.1) 02/09/22 16:55 02/09/22 Chloride Level 104 mmol/L (98-107) 02/09/22 16:55 02/09/22 Carbon Dioxide Level 23.5 mmol/L (21.0-32.0) 02/09/22 16:55 02/09/22 Blood Urea Nitrogen 21 mg/dL (7-18) H 02/09/22 16:55 02/09/22 Creatinine 1.0 mg/dL (0.70-1.30) 02/09/22 16:55 02/09/22 Estimated GFR/1.73 m2 >= 60.00 (mL/min/1.73m2) 02/09/22 16:55 02/09/22 Calcium Level 8.0 mg/dL (8.5-10.1) L 02/09/22 16:55 02/09/22 Albumin 3.4 g/dL (3.4-5.0) 02/09/22 16:55 02/09/22 Glucose Level 90 mg/dL (74-106) 02/09/22 16:55 02/09/22 Liver Function Panel: Alanine Aminotransferase (ALT/SGPT) 35 U/L (16-63) 02/09/22 16:55 02/09/22 Aspartate Amino Transf (AST/SGOT) 31 U/L (15-37) 02/09/22 16:55 02/09/22 Coagulation Panel: No Data to Display Cardiac Panel: No Data to Display Arterial Blood Gas: No Data to Display Venous Blood Gas: No Data to Display Pancreas Panel: No Data to Display Thyroid Panel: Thyroid Stimulating Hormone (TSH) 4.58 uIU/mL (0.36-3.74) H 02/09/22 16:55 02/09/22 Infectious Disease: Coronavirus (COVID-19)(PCR) Negative (Negative) 02/15/22 10:02/15/22 Coronavirus 2019 Source Nasal/Nares 02/15/22 10:02/15/22 Blood Cultures: No Data to Display Toxicology Panel: No Data to Display Imaging and Studies Imaging and Studies Study information below may be from another EMR and interpreted by another provider. Please see original notes in EMR for more complete details. Echocardiogram Summary: *STUDY CONCLUSIONS* Impressions: Compared to the prior study, there has been no significant interval change. Summary: 1. Left ventricle: The cavity size was at the upper limits of normal. Wall thickness was normal. Systolic function was normal. The estimated ejection fraction was 55-60%. Wall motion was normal; there were no regional wall motion abnormalities. 2. Left atrium: The atrium was mildly dilated. 3. Right ventricle: The cavity size was normal. Wall thickness was normal. Systolic function was normal. 4. Right atrium: The atrium was moderately dilated. Anesthesia Assessment and Plan Anesthesia History Personal History: No History of Anesthesia Complications Family History: No Family History of Anesthesia Complications Exercise Tolerance Exercise Tolerance: Metabolic Equivalents>4 Cardiac & Pulmonary Exam Cardiac Exam: Normal S1/S2 Heart Sounds Pulmonary Exam: Clear Bilateral Breath Sounds Implantable Cardiac Device Does patient have a Pacemaker or an ICD?: No Airway Exam Known Difficult Airway: No Mallampati Class: 2 Mouth Opening: Normal (> 3cm) Thyromental Distance: Greater than 3 cm Neck Range of Motion: Full ROM Neck Circumference: Normal Teeth Condition: Generalized Poor Dentition ASA Classification ASA Score: ASA 2 Emergency Case?: No NPO Status NPO Status: NPO Clears >2 hours, Solids >8 hours Anesthesia Plan Resuscitation Status: Full Code Anesthesia Technique: General Anesthesia Airway Planned: Natural Airway Monitors Used: Standard Monitors
[2022-02-17 08:16] VITALS: BMI 18.6
[2022-02-17 08:50] LABS: HCT 31.4 % (40.0-50.0); HGB 8.7 g/dL (13.5-17.5)
--- NOTE | 2022-02-17 09:13 | STOM_PTH ---
PATIENT: Fahad Vasquez LOC: [facility] U#:[id number] AGE/SX: 46/M ROOM: RE02/17/[address]: Laure Stone MD : 1975 BED: DIS: 02/17/2022 SPEC #: [id number] RECD: 02/17/22 12:43 STATUS: SHELLY REQ #: [id number] MIGUEL: 02/17/22 09:[address]: Laure Stone DEPT: Surgical Specimen RECD BY: Flory Galarza ENTERED: 02/17/22 12:46 SP TYPE: STOMACH OTHR DR: Suzie Carvajal Tissues: 1 - STOMACH BIOPSY 2 - STOMACH BIOPSY 3 - BIOPSY BOWEL Procedures: GROSS AND MICRO LEVEL 4 IMMUNOPEROXIDASE STAIN Comments: [id number]
[2022-02-17 09:50] VITALS: BP 114/74; PULSE 55; RESP 16; TEMP 36.5; O2SAT 98
[2022-02-17 10:23] VITALS: BP 123/89; PULSE 58; RESP 16; TEMP 36.3; O2SAT 99
--- NOTE | 2022-02-17 10:40 | W.ANESPOSTOP ---
Postoperative Evaluation Date, Time and Location Date Performed: 02/17/22 Time Performed: 10:41 Patient Location: Day Surgery Unit Vital Signs Most Recent Imported Vital Signs: Most Recent Vital Signs Temp Pulse Resp BP Pulse Ox 36.3 C L 58 L 16 123/89 99 02/17/22 10:23 02/17/22 10:23 02/17/22 10:23 02/17/22 10:23 02/17/22 10:23 Pain Score Most Recent Pain Score: Most Recent Pain Score Pain Level 0 02/17/22 10:23 Assessment Mental Status: Awake (Alert & Oriented to Patient Baseline) Airway and Respiratory Function: Patent airway with normal (patient baseline) respiratory exam Cardiovascular Function: Hemodynamically Stable Hydration Status: Adequately Hydrated Nausea & Vomiting: No Nausea or Vomiting Pain: Pt. Denies Any Pain Peripheral Nerve Block: Patient did not receive a nerve block
== END 2022-02-17 11:03 | disposition home or self-care (01) ==
LOC: SUR 07:37
PROVIDERS: Student in an Organized Health Care Education/Training Program; PCP Nurse Practitioner Family; Visit Provider Surgery
PROC: (CPT 45380; principal; 2022-02-17 09:30)
DX: D64.9 Anemia, unspecified (principal); K63.5 Polyp of colon; K25.9 Gastric ulcer, unspecified as acute or chronic, without hemorrhage or perforation; K44.9 Diaphragmatic hernia without obstruction or gangrene; K22.89 Other specified disease of esophagus; K63.89 Other specified diseases of intestine
CPT/HCPCS: 45380; 43239; 36415; 88305; 85014; 85018; 88361; J2001

== ENCOUNTER 2022-03-01 02:28 | Outpatient (CLI) | payer BC, SELFPAY ==
--- NOTE | 2022-03-01 | DI.RAD_ITS ---
Exam(s) XR CHEST 2V PA LATERAL EXAM: XR CHEST 2V PA LATERAL CLINICAL HISTORY: DYSPNEA ON EXERTION,R06.09. TECHNIQUE: 2D digital imaging was performed. COMPARISON: No exams were available for comparison FINDINGS: 2 views: Heart size normal. Upper mediastinum is not widened. Prominent hiatal hernia is noted. This measur es 10 cm wide 10 cm craniocaudal by 8 cm AP. Lungs are clear. No infiltrates nor pleural effusions. IMPRESSION: No acute pulmonary findings. Prominent hiatal hernia noted. DATA REPOSITORY: RADIATION DOSE DELIVERED:
== END 2022-03-01 02:48 ==
PROVIDERS: PCP Nurse Practitioner Family; Visit Provider Nurse Practitioner Family
DX: R06.00 Dyspnea, unspecified; K44.9 Diaphragmatic hernia without obstruction or gangrene
CPT/HCPCS: 71046

== ENCOUNTER 2022-11-04 15:37 | Outpatient (REF) | payer BC, SELFPAY ==
[2022-11-04 16:26] LABS: HCT 45.8 % (40.0-50.0); HGB 15.1 g/dL (13.5-17.5); MCH 31.1 pg (27.0-33.0); MCV 94 fL (80-95); MPV 11.4 fL (8.0-11.0); Platelet Count 200 10^3/uL (130-400); RBC 4.85 10^6/uL (4.36-5.78); RDW 12.8 % (11.8-14.1); RDW-SD 44.5 fL
[2022-11-04 16:37] LABS: Iron 156 ug/dL (65-175)
[2022-11-04 16:51] LABS: Ferritin 39 ng/mL (26-388); TSH 7.85 uIU/mL (0.36-3.74)
== END 2022-11-04 15:38 | disposition home or self-care (01) ==
LOC: NCHCN 15:37
PROVIDERS: PCP Nurse Practitioner Family; Visit Provider Nurse Practitioner Family
DX: Z00.00 Encounter for general adult medical examination without abnormal findings (principal); D50.9 Iron deficiency anemia, unspecified; Z79.899 Other long term (current) drug therapy; E03.9 Hypothyroidism, unspecified
CPT/HCPCS: 85027; 82728; 83540; 84443

== ENCOUNTER 2023-07-15 18:45 | Outpatient (REF) | payer BC, SELFPAY ==
[2023-07-15 14:02] LABS: HCT 44.9 % (40.0-50.0); HGB 15.1 g/dL (13.5-17.5); MCH 31.5 pg (27.0-33.0); MCHC 33.6 % (32.0-36.0); MCV 94 fL (80-95); MPV 10.5 fL (8.0-11.0); Platelet Count 214 10^3/uL (130-400); RDW 12.8 % (11.8-14.1); WBC 4.15 10^3/uL (4.4-10.8)
[2023-07-15 14:11] LABS: Iron 192 ug/dL (65-175); Total Iron Binding Capacity 313 ug/dL (250-450); Transferrin Sat 61 % (20-55)
[2023-07-15 14:24] LABS: ALT 37 U/L (16-63); AST 29 U/L (15-37); Alkaline Phosphatase 69 U/L (46-116); Anion Gap 9.3 mmol/L (3-11); BUN 17 mg/dL (7-18); Bilirubin, Total 0.4 mg/dL (0.2-1.0); CO2 27.7 mmol/L (21.0-32.0); CREATININE 0.7 mg/dL (0.70-1.30); Calcium 9.2 mg/dL (8.5-10.1); Chloride 109 mmol/L (98-107); Estimated GFR 113.66 (mL/min/1.73m2); Ferritin 42 ng/mL (26-388); Glucose 100 mg/dL (74-106); Potassium 4.5 mmol/L (3.5-5.1); Sodium 146 mmol/L (136-145); T4 7.4 ug/dL (4.7-13.3); TSH 9.24 uIU/mL (0.36-3.74); Total Protein 6.9 g/dL (6.4-8.2)
[2023-07-15 22:20] LABS: T3, Total 155 ng/dL (97-169)
== END 2023-07-15 18:46 | disposition home or self-care (01) ==
LOC: NCHCN 18:45
PROVIDERS: PCP Nurse Practitioner Family; Visit Provider Nurse Practitioner Family
DX: D50.9 Iron deficiency anemia, unspecified (principal); E03.9 Hypothyroidism, unspecified; R56.9 Unspecified convulsions
CPT/HCPCS: 80053; 85027; 82728; 83540; 83550; 84436; 84443; 84480

== ENCOUNTER 2023-09-15 02:26 | Outpatient (CLI) | payer BC, SELFPAY ==
--- NOTE | 2023-09-15 15:00 | DI.US_ITS ---
APPROVED REPORT EXAM: Comprehensive 2D, Doppler, and color-flow Echocardiogram Patient Location: Out-Patient Cigarette Paper Tester: Joauqina Dave RDCS (AE) Indications: Marfans syndrome, Murmur cardiac undiagnosed Other Information Study Quality: Adequate Conclusion Normal left ventricular wall thickness and chamber size. Ejection fraction is 60 to 65%. Wall motio n is normal Normal right ventricular size and systolic function Right atrium is borderline dilated. Left atrium is mildly dilated There are no structural valvular abnormalities Trace mitral regurgitation Trace to mild tricuspid regurgitation. Estimated right ventricular systolic pressure is 24 mmHg Normal aortic root and ascending aorta Wall motion Left Ventricle The left ventricle is normal size. The left ventricular systolic function is normal. The left ventric ular ejection fraction is within the normal range. There is normal left ventricular wall thickness. T here is normal LV segmental wall motion. There is no ventricular septal defect visualized. LVEF is 60 -65%. Right Ventricle The right ventricle is normal size. The right ventricular systolic function is normal. Atria Left atrium is mildly dilated. . Right atrium is borderline dilated. The interatrial septum is int act with no evidence for an atrial septal defect. Aortic Valve The aortic valve is normal in structure. Aortic valve is trileaflet. There is no aortic valvular sten osis. No aortic regurgitation is present. Mitral Valve The mitral valve is normal in structure. No evidence of mitral valve stenosis. Trace mitral regurgita tion. Tricuspid Valve The tricuspid valve is normal in structure. There is no tricuspid valve stenosis. Trace to mild tricu spid regurgitation. The RVSP is 23.8 mmHg. Pulmonic Valve The pulmonary valve is normal in structure. There is no pulmonic valvular stenosis. Trace pulmonic re gurgitation. Great Vessels The aortic root is normal in size. The ascending aorta is normal in size. Aortic arch is normal in ca liber. IVC is normal in size and collapses >50% with inspiration. Pericardium There is no pericardial effusion. 2D Dimensions IVSD d PLAX 0.74 cm M: 0.6-1.2 Ao Root d 3.52 cm M: 3.1 - 3.7 LVPW d PLAX 0.67 cm M: 0.6 - 1.2 Ao Asc Diam d 3.27 cm M: 2.6 - 3.4 LVID d PLAX 5.57 cm M: 4.2 - 5.8 LVDs 3.78 cm M: 2.5 - 4.0 LV EF Teichholz 59.6 % FS 32.11 % LV EDV (Teich) 152.1 mL LV ESV (Teich) 61.4 mL M-Mode TAPSE 2.33 cm (M/F) >1.7 Auto EF LV EDV A4C 127.3 mL LV EDV A2C 154.7 mL LV EDV BP 142.0 mL LV ESV A4C 56.3 mL LV ESV A2C 65.7 mL LV ESV BP 60.6 mL LVEF(%) A4C 55.8 % LVEF(%) A2C 57.5 % LVEF(%) BP 57.3 % LV SV A4C 71.0 ml LV SV A2C 89.0 ml LV SV BP 81.4 ml LV CO A4C 5.3 L/min LV CO A2C 5.9 L/min LV CO BP 5.6 L/min HR A4C 73.93 BPM HR A2C 66.18 BPM LV EDV Index (BP) LA Volume LA Length A4C 6.5 cm LA Length A2C 6.3 cm LA Area A4C s 26.59 cm2 LA Area A2C s 24.87 cm2 LA Vol A4C A-L 91.77 mL LA Vol A2C A-L 83.31 mL LA Vol Biplane A-L 89.1 mL LA Vol/BSA A4C A-L LA Vol/BSA A2C A-L LA Vol/BSA BP A-L 42.2 mL/m2 LA Vol A4C MOD 87.6 mL LA Vol A2C MOD 79.2 mL LA Vol BP MOD 84.1 mL RA Volume RA Area A4C 12.1 cm2 RA ESV A4C (A-L) 27.3mL RA Vol/BSA A4C A-L RA Length A4C 4.6 cm RA ESV A4C (MOD) 25.7mL LV Diastology MV E' medial 0.110 (>0.07 m/s) MV E Vmax 0.88 (0.4-1.3 m/s) MV E/E' MED 7.99 (<14) MV A Vmax 0.80 (0.4-1.3 m/s) E/A Ratio 1.1 Aortic Valve AoV Vmax 1.83 m/s LVOT Vmax 1.28 m/s AoV Peak Grad 13.4 mmHg LVOT Peak Grad 6.6 mmHg AoV Area (Vmax) 2.80 cm2 LVOT VTI 0.234 m AoV VTI 0.359 m LVOT Mean Grad 3.9 mmHg AoV Mean Joey. 1.24 m/s LVOT SV 93.20 mL AoV Mean Grad 7.2 mmHg LVOT Diam s 2.25 cm AoV Area (VTI) 2.60 cm2 Velocity Ratio 0.70 Mitral Valve MV DT 229 (160-240 msec) MV Vmax TIPS 1.00 m/s MV Mean Grad 2.0 (<2mmHg) MV VTI 0.422 m Pulmonary Valve PV Vmax 1.23 (0.5-1.5 m/s) RVOT Vmax 0.85 m/s PV Peak Grad 6.0 mmHg RVOT Peak Gr. 2.9 mmHg PV Mean Joey 0.85 m/s RVOT VTI 0.181 m PV Mean Grad 3.4 mmHg RVOT Mean Gr. 1.5 mmHg Tricuspid Valve RA Pressure 3.00 mmHg TR Vmax 2.28 m/s TV S' 0.16 m/s TR Peak Grad 20.7 mmHg RVSP (TR) 23.8 mmHg
== END 2023-09-15 02:46 ==
LOC: DI 02:27
PROVIDERS: PCP Nurse Practitioner Family; Visit Provider Nurse Practitioner Family
DX: Q87.40 Marfan syndrome, unspecified (principal); R01.1 Cardiac murmur, unspecified
CPT/HCPCS: 93306

== ENCOUNTER 2023-09-19 16:45 | Outpatient (REF) | payer BC, SELFPAY | END 2023-09-19 16:46 | disposition home or self-care (01) | LOC: NCHCN 16:45 | PROVIDERS: PCP Nurse Practitioner Family; Visit Provider Nurse Practitioner Family | DX: E03.9 Hypothyroidism, unspecified (principal) | CPT/HCPCS: 84443 ==

== ENCOUNTER 2024-01-11 15:16 | Outpatient (REF) | payer BC, SELFPAY ==
[2024-01-11 16:11] LABS: Abs Immature Grans 0.01 10^3/uL (0.0-0.06); Absolute Basophil Count 0.06 10^3/uL (0.0-0.2); Absolute Eosinophil Count 0.18 10^3/uL (0.0-0.7); Absolute Lymphocyte Count 0.99 10^3/uL (1.2-3.4); Absolute Monocyte Count 0.49 10^3/uL (0.1-0.8); Absolute Neutrophil Count 2.96 10^3/uL (1.2-6.7); Basophils % 1.3; Eosinophils % 3.8; HCT 46.6 % (40.0-50.0); HGB 15.7 g/dL (13.5-17.5); Immature Grans % 0.2; Lymphocytes % 21.1; MCH 31.1 pg (27.0-33.0); MCHC 33.7 % (32.0-36.0); MCV 92 fL (80-95); MPV 10.9 fL (8.0-11.0); Monocytes % 10.4; Neutrophils % 63.2; Platelet Count 240 10^3/uL (130-400); RBC 5.05 10^6/uL (4.36-5.78); RDW 13.1 % (11.8-14.1); WBC 4.69 10^3/uL (4.4-10.8)
[2024-01-11 17:04] LABS: Calculated LDL 110 mg/dL (<100); Cholesterol 187 mg/dL (<200); Ferritin 36 ng/mL (26-388); HDL Cholesterol 68 mg/dL (40-60); TSH 2.86 uIU/mL (0.36-3.74); Triglyceride 49 mg/dL (<150)
[2024-01-11 17:32] LABS: Iron 258 ug/dL (65-175); Total Iron Binding Capacity 347 ug/dL (250-450); Transferrin Sat 74 % (20-55)
== END 2024-01-11 15:17 | disposition home or self-care (01) ==
LOC: NCHCN 15:16
PROVIDERS: PCP Nurse Practitioner Family; Visit Provider Nurse Practitioner Family
DX: E03.9 Hypothyroidism, unspecified (principal); E78.5 Hyperlipidemia, unspecified; D50.9 Iron deficiency anemia, unspecified
CPT/HCPCS: 80061; 82728; 83540; 83550; 84443; 85025

== ENCOUNTER 2024-08-13 03:31 | Outpatient (CLI) | payer BC, SELFPAY ==
--- NOTE | 2024-08-13 08:00 | DI.DEXA_ITS ---
Exam(s) XR DEXA BONE DENSITY W/WO NOLA EXAM: XR DEXA BONE DENSITY W/WO NOLA CLINICAL HISTORY: long-term use of bone inhibitor medication, focal epilepsy, G40.109 TECHNIQUE: Routine DEXA evaluation of the lumbar spine, hip, or forearm. COMPARISON: No exams were available for comparison FINDINGS: Performed on a Hologic unit. Lateral image: No compression fracture evident. Lumbar Spine total T-score: -0.6 Hip total T-score:-2.0 Independent reading at the level of the femoral neck yields T-score of -1.5 Forearm total T-score: 0.3 IMPRESSION: Bone mineral density measures in the osteopenia range. Fracture risk is moderate. Note: Any spine fracture indicates 5x risk for subsequent spine fracture and 2x risk for subsequent h ip fracture. World Health Organization criteria for BMD interpretation classify patients: Normal...... T- Score at or above -1.0 Osteopenic... T- Score between -1.0 and -2.5 Osteoporosis... T-Score at or below -2.5
== END 2024-08-13 03:51 ==
LOC: DI 03:31
PROVIDERS: PCP Nurse Practitioner Family; Visit Provider Psychiatry & Neurology Neurology
DX: G40.109 Localization-related (focal) (partial) symptomatic epilepsy and epileptic syndromes with simple partial seizures, not intractable, without status epilepticus (principal); Z79.899 Other long term (current) drug therapy
CPT/HCPCS: 77080

== ENCOUNTER 2024-11-13 10:55 | Outpatient (CLI) | payer BC, SELFPAY ==
--- OUTSIDE RECORDS SUMMARY | 2024-11-13 10:58 | XMS_ITS | Encounter Summary ---
Author Organization [facility] Address [address] [place] [address] Care Team Providers Care Web Application Dev Specialist Name Role Phone Unknown, Provider Primary Care Provider Unava ilable Encounter Details Date Type Department Care Team (Late st Contact Info) Description 07/15/2023 Lab Requisition [facility] Pathology & Laboratory Medicine - [address] [id number] Outr Resulting Lab, Provider Social History Tobacco Use Types Packs/Day Years Used Date Smoking Tobacco: Never Assessed Interpersonal Safety Answer Date Record ed Physically Hurt Never 06/30/2020 Verbally Threaten Not on file 06/30/2020 Sex and Gender Information Value Date Recorded Sex Assigned at Not on file Legal Sex Male 16:36 EDT Gender Identity Not on file Sexual Orientation Not on file documented as of this encounter Plan of Treatment Not on file documented as of this encounter Procedures Procedure Name Priority Date/Time Associated Diagnosis Comments T3, TOTAL Routine 07/15/2023 10:36 EDT documented in this encounter Results * T3, TOTAL (07/15/2023 10:36 EDT) T3, Total 155 97 - 169 ng/dL 07/15/2023 22:15 EDT [facility] Blood VENOUS BLOOD / Unknown 07/15/2023 10:36 EDT 07/15/2023 21:22 EDT us Provider Outr Resulting Lab CHEMISTRY & BLOOD GA S ORDERABLES Final Result [facility] [address] [place] [address] documented in this encounter Visit Diagnoses Not on filedocumented in this encounter Care Teams Web Application Dev Specialist Relationship Specialty Start Date End Date Unknown, Provider, PCP - General 08/30/17 documented as of this encounter
--- OUTSIDE RECORDS SUMMARY | 2024-11-13 10:58 | XMS_ITS | Encounter Summary ---
Author Organization [facility] Address [address] [place] [address] Care Team Providers Care Maintenance Truck Driver Name Role Phone Unknown, Provider Primary Care Provider Unava ilable Encounter Details Date Type Department Care Team (Late st Contact Info) Description 08/30/2017 Results Only [facility] [phone] Pritesh Castro MD [address], [place] [id number] Social History Tobacco Use Types Packs/Day Years Used Date Smoking Tobacco: Never Assessed Sex and Gender Information Value Date Recorded Sex Assigned at Not on file Legal Sex Male 16:36 EDT Gender Identity Not on file Sexual Orientation Not on file documented as of this encounter Plan of Treatment Not on file documented as of this encounter Procedures Procedure Name Priority Date/Time Associated Diagnosis Comments SURGICAL PATHOLOGY Routine 08/30/2017 16 :46 EDT documented in this encounter Results * SURGICAL PATHOLOGY (08/30/2017 16:46 EDT) Pathology Report: SURGICAL PATHOLOGY REPORT Reports generated via electronic interface contain original data; however they are lacking the format of the original report. Caution should be taken when reading/interpret ing unformatted reports. Name: ? ASIYA MAHAJAN ? Accession #: ? [id number] ? : ? 1975 (Age: 42) ??M ? Collect Date: ? 08/30/2017 ? Location: ? [facility] ? Receive Date: ? 08/30/2017 ? Provider: PRITESH CASTRO MD Copy to: MARIA DEL ROSARIO ESTEVEZ KINDERGARTEN ASSISTANT ? Final Pathologic Diagnosis: GASTROESOPHAGEAL JUNCTION, BIOPSY: - Extensive intestinal metaplasia in a background of reflux esophagitis. - Negative for dysplasia. Document reviewed and electronically signed by: ANEL LADD MD Report ??Date: 09/02/2017 10:32 By the signature above, the attending physician certifies that he/she has personally conducted a gross and/or microscopic examination of the described specimens and rendered or confirmed the above diagnosis. Specimen(s) Received: Bx GE junction Clinical History: Anemia Gross Description: ? Received in formalin labelled with proper patient identification (initials N, C) and bx GE junction are three pink-roberts tissues (0.2 x 0.2 x 0.2 cm, 0.3 x 0.2 x 0.2 cm and 0.3 x 0.3 x 0.2 cm). Entirely submitted in 1. ALEKSANDAR Sim (ASCP) 08/31/2017 8:57 AM End of Report [facility] 08/30/2017 16:4 6 EDT 08/30/2017 16:46 EDT us Pritesh Castro MD PATHOLOGY ORDERABLES Fin al Result [facility] [address] [place] [address] documented in this encounter Visit Diagnoses Not on filedocumented in this encounter Care Teams Maintenance Truck Driver Relationship Specialty Start Date End Date Unknown, Provider, PCP - General 08/30/17 documented as of this encounter
--- OUTSIDE RECORDS SUMMARY | 2024-11-13 10:58 | XMS_ITS | Encounter Summary ---
Author Organization [facility] Address [address] [place] [address] Care Team Providers Care Education Faculty Member Name Role Phone Unknown, Provider Primary Care Provider Unava ilable Encounter Details Date Type Department Care Team (Late st Contact Info) Description 02/17/2022 Lab Requisition [facility] Pathology & Laboratory Medicine - [address] [address] Cecil Stone MD [address] [place] [phone] Encounter for other general examination Social History Tobacco Use Types Packs/Day Years [...] Priority Date/Time Associated Diagnosis Comments SURGICAL PATHOLOGY Today 02/17/2022 9: 13 EDT Encounter for other general examination documented in this encounter Results * SURGICAL PATHOLOGY (02/17/2022 9:13 EDT) Note to Patient The following pathology results have been interpreted by your pathologist and may be available to you before your health provider has had the opportunity to review them. Please allow time for your provider to receive these results and explore management options, if applicable. 02/23/2022 16:45 [facility] Final Diagnosis A. STOMACH, ANTRUM, BIOPSY: - Gastric antral gland mucosa with reactive gastropathy. - Mild patchy eosinophils in the lamina propria are noted. See comment 1. - No H.pylori identified on H& E stain. B. STOMACH, GASTRIC ULCER, BIOPSY: - Gastric antral mucosa showing foveolar hyperplasia, mild chronic focally active inflammation, and patchy increase in eosinophils in the lamina propria. See comment 1. - No H.pylori identified on immunohistochemical stain. C. COLON, CECUM, POLYP BIOPSY/POLYPECTOMY: - Colonic mucosa with mild architectural distortion, marked reactive epithelial changes, lymphoplasmacytic and neutrophilic inflammation in the lamina propria, cryptitis, and surface erosion, all compatible with inflammatory polyp. See comment 2. 02/23/2022 16:45 [facility] Diagnosis Comment Comment 1: Patchy increase in eosinophils in the lamina propria is noted: Part A. Antrum: up to 10 eosinophils per high-power field Part B. Gastric ulcer: up to 40 eosinophils per high-power field Immunoperoxidase stains were performed on this case to evaluate for H pylori organisms (block B, gastric ulcer). IHC control tissue stained appropriately. ANTIBODY(CLONE)(BLOCK ):RESULT H pylori (Rabbit Monoclonal (SP48), Struble) block B: negative NOTE: One or more of the reagents used in immunoperoxidase testing in this case may not have been cleared or approved by the U.S. Food and Drug Administration (FDA). The FDA has determined that such clearance or approval is not necessary. These tests are used for clinical purposes. They should not be regarded as investigational or for research. These reagents' performance characteristics have been determined by [facility] and/or by the referring laboratory. The positive and negative controls worked appropriately. If immunoperoxidase staining has been performed on alcohol fixed cytology specimens, which has not been fully validated, the assays should be interpreted with caution and correlated with clinical data. This laboratory is certified under the Clinical Laboratory Improvement Amendments of 1988 (CLIA-88) as qualified to perform high complexity clinical laboratory testing. Comment 2: Block C Deeper level examined. Negative for dysplasia or serrated changes. Slides reviewed at the intradepartmental consensus conference. 02/23/2022 16:45 [facility] Attestation By the signature below, the attending physician certifies that they have 1) personally conducted a gross and/or microscopic examination of the described specimen(s), and/or personally interpreted the results of laboratory testing of the described specimen(s), and 2) personally rendered or confirmed the above diagnosis. 02/23/2022 16:45 [facility] at 1645 Clinical History Iron deficiency anemia due to chronic blood loss 02/23/2022 16:[address] [facility] Gross Description A. Received in formalin labelled with proper patient identification (initials N, C) and antrum bx is a roberts-pink tissue measuring 0.5 x 0.2 x 0.1 cm. Submitted intact in A1. B. Received in formalin labelled with proper patient identification (initials N, C) and gastric ulcer bx is a 0.4 x 0.2 x 0.1 cm roberts-pink tissue. Submitted intact in B1. C. Received in formalin labelled with proper patient identification (initials N, C) and cecal polyp is a roberts-pink tissue measuring 0.7 x 0.2 x 0.1 cm. Submitted intact in C1. ALEKSANDAR BRO(ASCP) 02/17/2022 19:37 02/23/2022 16:[address] [facility] Performing Lab [facility] 02/23/2022 16:[address] [facility] Scanned Images 02/23/2022 16:[address] [facility] Tissue CECUM STRUCTURE / Unknown 02/17/2022 9:13 EDT 02/17/2022 17:06 EDT Tissue specimen (specimen) STOMACH STRUCTURE / Unknown 02/17/2022 9:13 EDT 02/17/2022 17:06 EDT Tissue specimen (specimen) CECUM STRUCTURE / Unknown 02/17/2022 9:13 EDT 02/17/2022 17:06 EDT us Cecil Stone MD PATHOLOGY ORDERABLES Fin al Result [facility] [address] [place] [address] documented in this encounter Visit Diagnoses Diagnosis Encounter for other general examination documented in this encounter Care Teams Education Faculty Member Relationship Specialty Start Date End Date Unknown, Provider, PCP - General 08/30/17 documented as of this encounter
--- OUTSIDE RECORDS SUMMARY | 2024-11-13 10:58 | XMS_ITS | Encounter Summary ---
Author Organization [facility] Address [address] [place] [address] Care Team Providers Care Infrastructure Developer Name Role Phone Unknown, Provider Primary Care Provider Unava ilable Encounter Details Date Type Department Care Team (Late st Contact Info) Description 02/10/2022 Lab Requisition [facility] Pathology & Laboratory Medicine - [address] [id number] Outr Resulting Lab, Provider Social History Tobacco [...] Procedure Name Priority Date/Time Associated Diagnosis Comments HAPTOGLOBIN Routine 02/10/2022 8:47 EDT documented in this encounter Results * HAPTOGLOBIN (02/10/2022 8:47 EDT) Haptoglobin 119 32 - 197 mg/dL 02/11/2022 9:04 EDT [facility] Blood VENOUS BLOOD / Unknown 02/10/2022 8:47 EDT 02/10/2022 17:12 EDT us Provider Outr Resulting Lab CHEMISTRY & BLOOD GA S ORDERABLES Final Result [facility] [address] [place] [address] documented in this encounter Visit Diagnoses Not on filedocumented in this encounter Care Teams Infrastructure Developer Relationship Specialty Start Date End Date Unknown, Provider, PCP - General 08/30/17 documented as of this encounter
--- OUTSIDE RECORDS SUMMARY | 2024-11-13 10:58 | XMS_ITS | Encounter Summary ---
Author Organization [facility] Address [address] [place] [address] Care Team Providers Care Delivery Technician Name Role Phone Unknown, Provider Primary Care Provider Unava ilable Encounter Details Date Type Department Care Team (Latest Contact Info) Description 08/30/2017 15:37 EDT - 08/30/2017 23:59 EDT Hospital Encounter [address] [address] Unknown, Provider, Discharge Disposition: Home or Self Care Social History Tobacco Use Types Packs/Day Years Used Date Smoking Tobacco: Never Assessed Sex and Gender Information Value Date Recorded Sex Assigned at Not on file Legal Sex Male 16:36 EDT Gender Identity Not on file Sexual Orientation Not on file documented as of this encounter Discharge Disposition Disposition Code Departure Means Destination Home or Self Nursing Home documented in this encounter Plan of Treatment Not on file documented as of this encounter Visit Diagnoses Not on filedocumented in this encounter Care Teams Delivery Technician Relationship Specialty Start Date End Date Unknown, ProviderMD PCP - General 08/30/17 documented as of this encounter
--- OUTSIDE RECORDS SUMMARY | 2024-11-13 10:58 | XMS_ITS | Clinical Summary ---
Author Organization [facility] Address [address] [place] [id number] Care Team Providers Care Pollution Control Engineer Name Role Phone Unknown, Provider MD Primary Care Provider Unava ilable Social History Tobacco Use Types Packs/Day Years Used Date Smoking Tobacco: Never Assessed Interpersonal Safety Answer Date Record ed Physically Hurt Never 06/30/2020 Verbally Threaten Not on file 06/30/2020 Sex and Gender Information Value Date Recorded Sex Assigned at Not on file Legal Sex Male 16:36 EDT Gender Identity Not on file Sexual Orientation Not on file Plan of Treatment Health Maintenance Due Date Last Done Comments Hepatitis C Screen 1975 Hepatitis B Vaccine (1 of 3 - 19+ 3-dose series) 07/28 COVID-19 Vaccine (2023- season) 2024 Insurance [facility] Care Teams Pollution Control Engineer Relationship Specialty Start Date End Date Unknown, Provider, PCP - General 08/30/17
--- OUTSIDE RECORDS SUMMARY | 2024-11-13 10:58 | XMS_ITS | Referral Summary ---
Author Organization [facility] Address [address] [place] [address] Care Team Providers Care Land Acquisition Analyst Name Role Phone Unknown, Provider MD Primary [...] Orientation Not on file Plan of Treatment Not on file Insurance [facility] Care Teams Land Acquisition Analyst Relationship Specialty Start Date End Date Unknown, Provider, PCP - General 08/30/17
[2024-11-13 11:03] LABS: Abs Immature Grans 0.01 10^3/uL (0.0-0.06); Absolute Basophil Count 0.05 10^3/uL (0.0-0.2); Absolute Eosinophil Count 0.08 10^3/uL (0.0-0.7); Absolute Lymphocyte Count 0.95 10^3/uL (1.2-3.4); Absolute Monocyte Count 0.43 10^3/uL (0.1-0.8); Absolute Neutrophil Count 5.08 10^3/uL (1.2-6.7); Basophils % 0.8 %; Eosinophils % 1.2 %; HCT 46.9 % (40.0-50.0); HGB 15.8 g/dL (13.5-17.5); Immature Grans % 0.2 %; Lymphocytes % 14.4 %; MCH 30.9 pg (27.0-33.0); MCHC 33.7 % (32.0-36.0); MCV 92 fL (80-95); MPV 9.9 fL (8.0-11.0); Monocytes % 6.5 %; Neutrophils % 76.9 %; Platelet Count 287 10^3/uL (130-400); RBC 5.11 10^6/uL (4.36-5.78); RDW 13.5 % (11.8-14.1)
[2024-11-13 11:32] LABS: ALT 20 U/L (16-63); AST 18 U/L (15-37); Alkaline Phosphatase 74 U/L (46-116); BUN 17 mg/dL (7-18); Bilirubin, Total 0.43 mg/dL (0.2-1.0); CREATININE 1.2 mg/dL (0.70-1.30); Calcium 9.1 mg/dL (8.5-10.1); Chloride 105 mmol/L (98-107); Estimated GFR 73.67 (mL/min/1.73m2); Ferritin 29 ng/mL (26-388); Glucose 198 mg/dL (74-106); Potassium 3.7 mmol/L (3.5-5.1); Sodium 141 mmol/L (136-145); TSH 6.27 uIU/mL (0.36-3.74); Total Protein 7.4 g/dL (6.4-8.2)
[2024-11-13 12:04] LABS: Iron 87 ug/dL (65-175); Total Iron Binding Capacity 375 ug/dL (250-450); Transferrin Sat 23 % (20-55)
[2024-11-13 12:42] LABS: FREE T4 0.95 ng/dL (0.76-1.46)
== END 2024-11-13 10:56 | disposition home or self-care (01) ==
LOC: LBO 10:56
PROVIDERS: PCP Nurse Practitioner Family; Visit Provider Nurse Practitioner Family
DX: K22.70 Barrett's esophagus without dysplasia (principal); D50.9 Iron deficiency anemia, unspecified; E03.9 Hypothyroidism, unspecified
CPT/HCPCS: 36415; 80053; 82728; 83540; 83550; 84439; 84443; 85025

== ENCOUNTER 2024-11-29 12:10 | Outpatient (REF) | payer BC, SELFPAY ==
[2024-11-29 15:32] LABS: Hemoglobin A1C 5.2 % (<5.7)
== END 2024-11-29 12:11 | disposition home or self-care (01) ==
LOC: NCHCN 12:10
PROVIDERS: PCP Nurse Practitioner Family; Visit Provider Nurse Practitioner Family
DX: R73.9 Hyperglycemia, unspecified (principal)
CPT/HCPCS: 83036